=== PATIENT | female | born 1965 | race Two or more races ===

== ENCOUNTER 2024-07-05 16:23 | Inpatient (IN) | payer MEDICAID, OTHER ==
[~2024-07-05] VITALS: Ht 152.4 cm; Wt 92.5 kg
[2024-07-05 17:01] LABS: Basophils # (auto) 0.1 10 ^3/uL (0-0.2); Basophils % (auto) 0.9 % (0.0-2.0); Eosinophils # (auto) 0.1 10 ^3/uL (0-0.8); Eosinophils % (auto) 0.5 % (0.0-7.0); Hematocrit 44.5 % (36.0-46.0); Hemoglobin 14.7 g/dL (12.2-16.2); Lymphocytes % (auto) 22.6 % (10.0-50.0); Mean Corpuscular Hemoglobin 29.2 pg (28.0-32.0); Mean Corpuscular Hgb Conc. 33.1 g/dL (32.0-36.0); Mean Corpuscular Volume 88.2 fL (80.0-100.0); Monocytes % (auto) 7.3 % (0.0-12.0); Neutrophils # (auto) 9.2 10 ^3/uL (1.6-8.6); Neutrophils % (auto) 68.7 % (37.0-80.0); Platelet Count (auto) 344 10^3/uL (140-450); Red Blood Cells 5.04 10^6/uL (4.0-5.20); Red Cell Distribution Width 14.2 % (11.8-14.3); White Blood Cell 13.3 10^3/uL (4.4-10.8)
[2024-07-05 17:16] LABS: Chloride 108 mmol/L (98-107); Potassium 3.6 mmol/L (3.5-5.1); Sodium 139 mmol/L (136-145)
[2024-07-05 17:17] LABS: Anion Gap 11 (5-15); Calcium 10.4 mg/dL (8.7-10.4); Carbon Dioxide 20 mmol/L (20-31)
[2024-07-05 17:22] LABS: Blood Urea Nitrogen 11 mg/dL (9-23); Glucose 104 mg/dL (74-106)
[2024-07-05] MEDS: SODIUM CHLORIDE 0.9% 1,000 ML IV ONE (17:30)
[2024-07-05] MEDS: MORPHINE SULFATE 4 MG/ML SYR/VIAL IV ONE (17:30)
[2024-07-05 17:45] LABS: Urine Bacteria None Seen /hpf (None Seen)
[2024-07-05 18:23] LABS: Urine Blood 1+ /uL (Negative); Urine Clarity Clear (Clear); Urine Color Light-Yellow (Yellow); Urine Mucus FEW (None Seen); Urine Protein, UAD TRACE (Negative); Urine Specific Gravity 1.022 (1.001-1.035); Urine Urobilinogen Normal (Negative); Urine WBC <1 /hpf (0 - 5); Urine pH 5.5 (5.0-9.0)
[2024-07-05] MEDS: ONDANSETRON HCL 4 MG/2 ML VIAL IV ONE (18:24)
[2024-07-05] MEDS ORDERED: HYDROcodone-ACET 5/325MG TAB PO PRN (22:00)
[2024-07-05] MEDS ORDERED: NITROGLYCERIN 0.4 MG SL TAB SL PRN (22:00)
[2024-07-05] MEDS ORDERED: MORPHINE SULFATE INJ 2 MG/ml SYRG IV PRN (22:00)
[2024-07-05] MEDS ORDERED: ACETAMINOPHEN 325 MG TAB PO PRN (22:00)
[2024-07-05 23:06] LABS: Magnesium 1.9 mg/dL (1.6-2.6)
[2024-07-05 23:10] LABS: Amphetamine Screen, Urine Neg (NEGATIVE); Barbiturate Scree,Urine Neg (NEGATIVE); Benzodiazephine Screen, Urine Neg (NEGATIVE); Cannabinoid Screen, Urine Neg (NEGATIVE); Cocaine Screen, Urine Neg (NEGATIVE); Opiate Scree,Urine Neg (NEGATIVE); Phencyclidine Screen, Urine Neg (NEGATIVE)
[2024-07-06] MEDS ORDERED: KETOROLAC TROMETH 30 MG/ML 1ML VIAL IV PRN
[2024-07-06] MEDS ORDERED: DEXTROSE (50%) 50ML SYRG IV PRN (01:15)
[2024-07-06] MEDS ORDERED: LABETALOL HCL 20 MG/4 ML VL IV PRN (01:30)
[2024-07-06] MEDS: metroNIDAZOLE 500MG/100ML 100 ML IV SCH (03:12)
[2024-07-06] MEDS: SODIUM CHLOR 0.9% PF (SALINE LOCK) 10ML VIAL/SYR IV SCH (03:43)
[2024-07-06] MEDS: SODIUM CHLORIDE 0.9% 1,000 ML IV SCH (03:52)
[2024-07-06 04:22] LABS: Basophils # (auto) 0 10 ^3/uL (0-0.2); Basophils % (auto) 0.5 % (0.0-2.0); Eosinophils # (auto) 0.1 10 ^3/uL (0-0.8); Eosinophils % (auto) 1.1 % (0.0-7.0); Hematocrit 37.1 % (36.0-46.0); Hemoglobin 12.7 g/dL (12.2-16.2); Lymphocytes # (auto) 2.8 10 ^3/uL (0.4-5.4); Lymphocytes % (auto) 30.2 % (10.0-50.0); Mean Corpuscular Hgb Conc. 34.2 g/dL (32.0-36.0); Mean Corpuscular Volume 87.6 fL (80.0-100.0); Monocytes # (auto) 0.9 10 ^3/uL (0-1.3); Monocytes % (auto) 9.6 % (0.0-12.0); Neutrophils # (auto) 5.5 10 ^3/uL (1.6-8.6); Neutrophils % (auto) 58.6 % (37.0-80.0); Platelet Count (auto) 293 10^3/uL (140-450); Red Blood Cells 4.24 10^6/uL (4.0-5.20); Red Cell Distribution Width 14.2 % (11.8-14.3); White Blood Cell 9.4 10^3/uL (4.4-10.8)
[2024-07-06 04:35] LABS: Alanine Aminotransferase 18 U/L (7-40); Albumin 4.2 g/dL (3.2-4.8); Alkaline Phosphatase 79 U/L (46-116); Anion Gap 11 (5-15); Aspartate Aminotransferase 14 U/L (13-40); Bilirubin, Total 1.7 mg/dL (0.2-1.0); Blood Urea Nitrogen 10 mg/dL (9-23); Calcium 9.4 mg/dL (8.7-10.4); Carbon Dioxide 21 mmol/L (20-31); Chloride 108 mmol/L (98-107); Glucose 117 mg/dL (74-106); Potassium 3.6 mmol/L (3.5-5.1); Sodium 140 mmol/L (136-145); Total Protein 7.1 g/dL (5.7-8.2)
[2024-07-06] MEDS: ACCU-CHEK COMFORT CURVE STRIP VI SCH (06:13)
[2024-07-06] MEDS: InsuLIN REG 1unit/0.01ml Soln (100units/ml) SC SCH (06:13)
[2024-07-06] MEDS ORDERED: POTASSIUM CHL 20MEQ/100ML 100 ML IV ONE (07:45)
[2024-07-06 07:56] VITALS: PULSE 79; RESP 15; O2SAT 93
[2024-07-06] MEDS: LOSARTAN POTASSIUM 25 MG TAB PO SCH (08:36)
[2024-07-06] MEDS: PANTOPRAZOLE 40 MG/10 ML VIAL INJ IV SCH (08:40)
[2024-07-06] MEDS: ENOXAPARIN SOD 40 MG/0.4 ML SYRINGE SC SCH (08:41)
[2024-07-06] MEDS ORDERED: levoFLOXacin 500MG 100 ML IV SCH (10:00)
[2024-07-06] MEDS: levoFLOXacin 500MG 100 ML IV SCH (10:05)
[2024-07-06] MEDS: POTASSIUM CHL 20 Meq TABLET PO ONE (10:06)
[2024-07-06] MEDS: ONDANSETRON HCL 4 MG/2 ML VIAL IV PRN (10:27)
[2024-07-06] MEDS: ALLOPURINOL 100 MG TAB PO ONE (11:06)
[2024-07-06] MEDS: LORazepam 2MG/ML-1ML VIAL IV PRN (14:04)
[2024-07-06] MEDS: KETOROLAC TROMETH 30 MG/ML 1ML VIAL IV PRN (14:19)
[2024-07-06] MEDS: ERGOCALCIFEROL 50,000 UNIT(1.25MG) CAP PO SCH (15:43)
[2024-07-06 17:00] VITALS: BP 138/46; PULSE 84; RESP 18; TEMP 97.6; O2SAT 96
[2024-07-06 17:05] VITALS: BP 138/46; PULSE 80; RESP 20; TEMP 97.9; O2SAT 95
[2024-07-06] MEDS ORDERED: METF-869 PO (19:16)
[2024-07-06] MEDS ORDERED: ALLO300T2 PO (19:16)
[2024-07-06] MEDS ORDERED: PANT40T PO (19:16)
[2024-07-06] MEDS ORDERED: ATOR10TA52 PO (19:16)
[2024-07-06] MEDS ORDERED: METO25TA93 PO (19:16)
[2024-07-06 20:00] VITALS: PULSE 75; RESP 16
[2024-07-06 21:00] VITALS: BP 156/67; PULSE 75; RESP 16; TEMP 97.7; O2SAT 95
[2024-07-06] MEDS: DOCUSATE SOD 100 MG CAP PO PRN (21:37)
[2024-07-06] MEDS: ATORVASTATIN 20 MG TAB PO SCH (21:37)
[2024-07-07 05:00] VITALS: BP 137/58; PULSE 74; RESP 16; TEMP 97.5; O2SAT 96
[2024-07-07 05:30] LABS: Alanine Aminotransferase 18 U/L (7-40); Albumin 3.8 g/dL (3.2-4.8); Alkaline Phosphatase 74 U/L (46-116); Anion Gap 9 (5-15); Aspartate Aminotransferase 17 U/L (13-40); BUN/Creatinine Ratio 7.7 (10.0-20.0); Blood Urea Nitrogen 8 mg/dL (9-23); Calcium 9.4 mg/dL (8.7-10.4); Carbon Dioxide 19 mmol/L (20-31); Chloride 114 mmol/L (98-107); Glucose 98 mg/dL (74-106); Potassium 4.2 mmol/L (3.5-5.1); Sodium 142 mmol/L (136-145)
[2024-07-07 05:31] LABS: Bilirubin, Total 1.3 mg/dL (0.2-1.0); Total Protein 6.7 g/dL (5.7-8.2)
[2024-07-07 09:00] VITALS: BP 151/66; PULSE 83; RESP 16; TEMP 98.2; O2SAT 94
[2024-07-07] MEDS: ALLOPURINOL 100 MG TAB PO SCH (10:02)
[2024-07-07] MEDS ORDERED: METR-344 PO (10:21)
[2024-07-07] MEDS ORDERED: LOS25T PO (10:21)
[2024-07-07] MEDS ORDERED: LEVO750T40 PO (10:21)
[2024-07-07] MEDS: ONDANSETRON ODT 4 MG TAB PO ONE (10:27)
[2024-07-11] MEDS ORDERED: HYDROcodone-ACET 5/325MG TAB PO PRN (10:55)
== END 2024-07-07 11:51 | disposition home or self-care (01) | DRG 244 ==
LOC: ER 16:23 → OVERFLOW 21:47 → WEST WING 07-06 17:20
PROVIDERS: ADMIT Internal Medicine; ATTEND Internal Medicine
DX: K57.32 Diverticulitis of large intestine without perforation or abscess without bleeding (principal); N17.0 Acute kidney failure with tubular necrosis; R65.10 Systemic inflammatory response syndrome (SIRS) of non-infectious origin without acute organ dysfunction; E11.9 Type 2 diabetes mellitus without complications; I10 Essential (primary) hypertension; K21.9 Gastro-esophageal reflux disease without esophagitis; G43.909 Migraine, unspecified, not intractable, without status migrainosus; M10.9 Gout, unspecified; Z90.710 Acquired absence of both cervix and uterus; Z79.4 Long term (current) use of insulin; Z79.899 Other long term (current) drug therapy
CPT/HCPCS: 36415; 74176; 76775; 80048; 80053; 80307; 81001; 82306; 82607; 82962; 83036; 83690; 83735; 84443; 85025; 86141; 93970; 99291; G0378; J1885; J1956; J2405; J2470; J3490; Q0162

== ENCOUNTER 2024-09-01 13:08 | Inpatient (IN) | payer MEDICAID, SELFPAY ==
[~2024-09-01] VITALS: Ht 149.9 cm; Wt 88.5 kg
[~2024-09-01 13:08] MED LIST: ALLO300T2 PO; ATOR10TA52 PO; CIPR-214 PO; HYDR50TA69 PO; LEVO750T40 PO; LOS25T PO; LOSA-534 PO; MET500T PO; METF-370 PO; METF-869 PO; METO25TA93 PO; METR-344 PO; PANT40T PO
--- NOTE | 2024-09-01 13:29 | ED.PDOC ---
GI ASSESSMENT HPI Comments 59Y F with PMHx DM, HTN, and diverticulitis presents to ED for chief complaint lt-sided abd pain. Additional symptoms include nausea, vomiting, and diarrhea. Pt is unable to tolerate food. Pt states she had the flu recently. Pt was also diagnosed with diverticulitis and was prescribed abx for one week. Pt is currently on day 5 of the abx. Chief Complaint: Abdominal Pain Time Seen by MD: 13:20 Primary Care Provider: NONE Reviewed Notes: Medications, Allergies Allergies: Coded Allergies: Morphine (Verified Allergy, Unknown, 07/05/24) Penicillins (Verified Allergy, Unknown, 07/05/24) Uncoded Allergies: IV BENADRYL (Allergy, Unknown, 07/05/24) Home Meds Active Scripts Metronidazole (Flagyl) 500 Mg Tab, 1 TAB PO TID, #30 TAB Prov:XAVIER JAMES RESIDENT 07/07/24 Levofloxacin Hemihydrate (LEVOFLOXACIN) 750 Mg Tab, 1 TAB PO DAILY, #10 TAB Prov:XAVIER JAMES RESIDENT 07/07/24 Losartan Potassium (Losartan Potassium) 25 Mg Tab, 25 MG PO DAILY for 30 Days, #30 TAB Prov:XAVIER JAMES RESIDENT 07/07/24 Reported Medications Allopurinol (Allopurinol) 300 Mg Tab, 1 TAB PO DAILY 07/06/24 Pantoprazole Sodium Sesquihydr (Pantoprazole Sodium) 40 Mg Tab, 1 TAB PO QAM 07/06/24 Atorvastatin Calcium (ATORVASTATIN CALCIUM) 10 Mg Tab, 1 TAB PO 07/06/24 Metoprolol Succinate (Metoprolol Succinate Er) 25 Mg Tab, 1 TAB PO DAILY 07/06/24 Metformin Hydrochloride (Metformin Hydrochloride) 500 Mg Tab, 1 TAB PO BID 07/06/24 Information Source: Patient Mode of Arrival: Ambulatory Timing: Days Duration: Since onset Quality: Sharp Vomitus: Watery Stool: Watery Severity: Moderate Recent: Antibiotics Recent Hx of: None Pain Location: LUQ, LLQ Modifying Factors: Nothing Associated sign and symptoms: Nausea, Vomiting, Diarrhea, Abdominal Pain Past Medical History PAST MEDICAL HISTORY: CKF, DM, HTN Past Medical History (Other): Diverticulitis Surgical History: Appendectomy, Hysterectomy, Tubal Ligation 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: No Pertinent 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 Family History Family History: Unknown Social History Smoker: Non-Smoker Alcohol: Denies ETOH Use Drugs: Denies Drug Use Lives In: Home Constitutional: denies: chills, diaphoresis, fatigue, fever, malaise, sweats, weakness, others EENTM: denies: blurred vision, double vision, ear bleeding, ear discharge, ear drainage, ear pain, ear ringing, eye pain, eye redness, hearing loss, mouth pain, mouth swelling, nasal discharge, nose bleeding, nose congestion, nose pain, photophobia, tearing, throat pain, throat swelling, voice changes, others Respiratory: denies: cough, hemoptysis, orthopnea, SOB at rest, shortness of breath, SOB with excertion, stridor, wheezing, others Cardiovascular: denies: chest pain, dizzy spells, diaphoresis, Dyspnea on exertion, edema, irregular heart beat, left arm pain, lightheadedness, palpitations, PND, syncope, others Gastrointestinal: reports: abdominal pain, diarrhea, nausea, vomiting; denies: abdomen distended, blood streaked bowels, constipated, dysphagia, difficulty swallowing, hematemesis, melena, poor appetite, poor fluid intake, rectal bleeding, rectal pain, others Genitourinary: denies: abnormal vagina bleeding, burning, dyspareunia, dysuria, flank pain, frequency, hematuria, incontinence, pain, , vagina discharge, urgency, others Neurological: denies: dizziness, fainting, headache, left sided numbness, left sided weakness, numbness, paresthesia, pre-existing deficit, right sided numbness, right sided weakness, seizure, speech problems, tingling, tremors, weakness, others Musculoskeletal: denies: back pain, gout, joint pain, joint swelling, muscle pain, muscle stiffness, neck pain, others Integumetry: denies: bruises, change in color, change in hair/nails, dryness, laceration, lesions, lumps, rash, wounds, others Allergic/Immunocompromised: denies: Difficulty Healing, Frequent Infections, Hives, Itching, others Hematologic/Lymphatic: denies: anemia, blood clots, easy bleeding, easy bruising, swollen glands, others Endocrine: denies: excessive hunger, excessive sweating, excessive thirst, excessive urination, flushing, intolerance to cold, intolerance to heat, unexplained weight gain, unexplained weight loss, others Psychiatric: denies: anxiety, bipolar disorder, depression, hopeless, panic disorder, schizophrenia, sleepless, suicidal, others All Other Systems: Reviewed and Negative Physical Exam General Appearance: Moderate Distress, Normal HEENT: Normal ENT Inspection, Pharynx Normal, TMs Normal Neck: Full Range of Motion, Non-Tender, Normal, Normal Inspection Respiratory: Chest Non-Tender, Lungs Clear, No Accessory Muscle Use, No Respiratory Distress, Normal Breath Sounds Cardiovascular: No Edema, No JVD, No Murmur, No Gallop, Normal Peripheral Pulses, Regular Rate/Rhythm Breast Exam: Deferred Gastrointestinal: No Organomegaly, Non Tender, No Pulsatile Mass, Normal Bowel Sounds, Soft Genitalia: Deferred Pelvic: Deferred Rectal: Deferred Extremities: No calf tenderness, Normal capillary refill, Normal inspection, Normal range of motion, Non-tender, No pedal edema Musculoskeletal : Apperance: Normal Neurologic: Alert, disability attorney II-XII nml as Tested, No Motor Deficits, Normal Affect, Normal Mood, No Sensory Deficits Cerebellar Function: Normal Reflexes: Normal Skin: Dry, Normal Color, Warm Peripheral Pulses: 3+ Radial (R), 3+ Radial (L) Lymphatic: No Adenopathy Was a procedure done? Was a procedure done?: No GI differential Dx Differential Diagnosis: Constipation, Diverticular disease, Esophagitis, Gastritis/PUD, Gastroenteritis, Electrolyte Imbalance, Bacterial, Viral X-Ray, Labs, Meds, VS Vital Signs Date Time Temp Pulse Resp B/P (MAP) Pulse Ox O2 Delivery O2 Flow Rate FiO2 09/01/24 14:39 98.2 72 18 151/67 (95) 98 98.2 09/01/24 14:15 Room Air* 0 21 09/01/24 13:18 97.7 94 20 131/79 (96) 98 Lab Test 09/01/24 14:00 09/01/24 13:43 Range/Units Urine Color Yellow Yellow Urine Clarity Clear Clear Urine pH 6.0 5.0-9.0 Urine Specific [place] 1.017 1.001-1.035 Urine Protein Trace H Negative Urine Ketones Trace Negative Urine Blood Negative Negative /uL Urine Nitrite Negative Negative Urine Bilirubin Negative Negative Urine Urobilinogen Normal Negative mg/dL Urine Leukocyte Esterase 1+ Negative /uL Urine RBC 2 0 - 4 /hpf Urine WBC 2 0 - 5 /hpf Urine Squamous Epithelial Cells Few <5 /hpf Urine Bacteria None seen None Seen /hpf Urine Mucus Few None Seen Urine Glucose Normal Normal mg/dL White Blood Count 8.5 4.4-10.8 10^3/uL Red Blood Count 4.68 4.0-5.20 10^6/uL Hemoglobin 13.7 12.2-16.2 g/dL Hematocrit 41.6 36.0-46.0 % Mean Corpuscular Volume 88.8 80.0-100.0 fL Mean Corpuscular Hemoglobin 29.3 28.0-32.0 pg Mean Corpuscular Hemoglobin Concent 33.0 32.0-36.0 g/dL Red Cell Distribution Width 14.8 H 11.8-14.3 % Platelet Count 365 140-450 10^3/uL Mean Platelet Volume 7.7 6.9-10.8 fL Neutrophils (%) (Auto) 47.7 37.0-80.0 % Lymphocytes (%) (Auto) 40.2 10.0-50.0 % Monocytes (%) (Auto) 10.0 0.0-12.0 % Eosinophils (%) (Auto) 0.6 0.0-7.0 % Basophils (%) (Auto) 1.5 0.0-2.0 % Neutrophils # (Auto) 4.1 1.6-8.6 10 ^3/uL Lymphocytes # (Auto) 3.4 0.4-5.4 10 ^3/uL Monocytes # (Auto) 0.9 0-1.3 10 ^3/uL Eosinophils # (Auto) 0.1 0-0.8 10 ^3/uL Basophils # (Auto) 0.1 0-0.2 10 ^3/uL Nucleated Red Blood Cells 0.1 % Sodium Level 141 136-145 mmol/L Potassium Level 3.6 3.5-5.1 mmol/L Chloride Level 108 H 98-107 mmol/L Carbon Dioxide Level 22 20-31 mmol/L Anion Gap 11 5-15 Blood Urea Nitrogen 9 9-23 mg/dL Creatinine 1.44 H 0.550-1.02 mg/dL Glomerular Filtration Rate Calc 42 >90 mL/min BUN/Creatinine Ratio 6.3 L 10.0-20.0 Serum Glucose 106 74-106 mg/dL Calcium Level 8.9 8.7-10.4 mg/dL Lipase 47 12-53 U/L Current Medications Medications (Trade) Dose Ordered Sig/Brandon Route Start Time Stop Time Status Last Admin Sodium Chloride 1,000 ml @ 1,000 mls/hr Q1H ONCE IV 09/01/24 13:45 09/01/24 14:44 DC 09/01/24 13:[address] [address] Ph: [phone] DIAGNOSTIC IMAGING Diagnostic Imaging Report : [id number] Signed PATIENT: CESAR RIOS ACCT: [id number] UNIT: [id number] : 1965 LOC: ER ROOM / BED: / AGE / SEX: 59 / F ADM STATUS: REG ER SERVICE 1510 ORDERING PHYSICIAN: PIPER AGUILAR MD PROCEDURE(s): ABPL - CT AB PEL WO CON-NO ORAL OR IV REASON: diverticulitis ORDER NUMBER(s): [id number], ACCESSION NUMBER(s): [id number] Exam: CT CT AB PEL WO CON-NO ORAL OR IV History: diverticulitis Comparison Study: 07/05/2024 TECHNIQUE: Multidetector CT of the abdomen and pelvis without contrast. Axial, coronal and sagittal multiplanar reformats were obtained from the axial data set by the technologist. Radiation Dose Information: CT Dose: CTDI volume is 16.07 mGy. Dose-length product is 878.85 mGy*cm FINDINGS: Bibasilar atelectasis. Partially visualized heart is unremarkable. Mild hepatomegaly. Otherwise, liver, spleen, gallbladder, pancreas and adrenal glands are unremarkable. Moderate to severe atrophy of the right kidney. Punctate nonobstructing right renal calculi. Otherwise, kidneys, ureters and urinary bladder are unremarkable. Status post hysterectomy. Mild gastric wall thickening. Otherwise, stomach is unremarkable. Small bowel loops unremarkable. Appendix is not definitely visualized. Scattered colonic diverticulosis with minimal fat stranding adjacent to a segment of the sigmoid. Small amount of fecal material within the colon. No intraperitoneal free air or free fluid. No evidence of aortic aneurysm. Mild atherosclerotic calcification of the aorta. No significant lymphadenopathy. Tiny fat containing umbilical hernia. The soft tissues are unremarkable. No destructive osseous lesions are noted. IMPRESSION: Colonic diverticulosis with mild sigmoid diverticulitis. Mild gastric wall thickening which may be due to inadequate distention/gastritis. Additional findings as above. ATED BY: DARLENE HIGH DO DICTATED DATE/TIME: 09/01/241531 SIGNED BY: DARLENE HIGH DO SIGNED DATE/TIME: 09/01/241531 CC: Patient alert. Complaining of abdominal pain. Has been taking antibiotics for possible diverticulitis for the past few days. Vitals stable. Abdomen is soft. Continues to have abdominal pain. Establish intravenous access. Was given fluids. Reviewed her previous visit. Explained to the patient. Continue cardiac monitoring. CT scan of the abdomen reviewed does show diverticulitis. Was given Rocephin. Was given Flagyl. Time of 1ST Reevaluation: 13:50 Reevaluation 1ST: Unchanged Patient Education/Counseling: Diagnosis, Treatment Family Education/Counseling: No Family Present Additional Information I reviewed the following notes from patient's past medical encounters: [facility] discharge 07/07/2024 The following tests were ordered, and results were reviewed by me: CBC, BMP, Lipase, UA, CT abd/pelvis WO contrast I reviewed and agreed with the following test results read by other providers: CT abd/pelvis WO contrast I discussed treatment and results with medical personnel and hospitalist. Departure 1 Departure Time of Disposition: 13:44 Impression: Primary Impression: Acute abdominal pain Additional Impression: Acute diverticulitis Disposition: ADMITTED INPATIENT Admit to: Med Surg Condition: Guarded Critical Care Note Critical Care Time?: No Stability Stability form required: No Heart Score Heart Score: Heart Score Response (Comments) Value History N/A 0 EKG N/A 0 Age N/A 0 Risk Factors N/A 0 Troponin N/A 0 Total 0 I personally scribed for PIPER AGUILAR MD ([email or web address]) on 09/01/24 at 13:29. Electronically submitted by Iza Mackenzie ([facility]). I personally scribed for PIPER AGUILAR MD ([email or web address]) on 09/01/24 at 15:20. Electronically submitted by Iza Mackenzie ([facility]). I personally scribed for PIPER AGUILAR MD ([email or web address]) on 09/01/24 at 16:07. Electronically submitted by Iza Mackenzie ([email or web address]). PIPER AGUILAR MD Sep 01, 2024 13:29
[2024-09-01] MEDS: HYDROcodone-ACET 10/325MG TAB PO ONE (13:45)
[2024-09-01] MEDS: SODIUM CHLORIDE 0.9% 1,000 ML IV ONE ×2 (13:45→18:04)
[2024-09-01 13:59] LABS: Basophils # (auto) 0.1 10 ^3/uL (0-0.2); Basophils % (auto) 1.5 % (0.0-2.0); Eosinophils # (auto) 0.1 10 ^3/uL (0-0.8); Eosinophils % (auto) 0.6 % (0.0-7.0); Hematocrit 41.6 % (36.0-46.0); Hemoglobin 13.7 g/dL (12.2-16.2); Lymphocytes # (auto) 3.4 10 ^3/uL (0.4-5.4); Lymphocytes % (auto) 40.2 % (10.0-50.0); Mean Corpuscular Hemoglobin 29.3 pg (28.0-32.0); Mean Corpuscular Volume 88.8 fL (80.0-100.0); Monocytes # (auto) 0.9 10 ^3/uL (0-1.3); Neutrophils # (auto) 4.1 10 ^3/uL (1.6-8.6); Neutrophils % (auto) 47.7 % (37.0-80.0); Nucleated Red Blood Cells % 0.1 %; Platelet Count (auto) 365 10^3/uL (140-450); Red Blood Cells 4.68 10^6/uL (4.0-5.20); Red Cell Distribution Width 14.8 % (11.8-14.3); White Blood Cell 8.5 10^3/uL (4.4-10.8)
[2024-09-01 14:01] LABS: Potassium 3.6 mmol/L (3.5-5.1); Sodium 141 mmol/L (136-145)
[2024-09-01 14:02] LABS: Anion Gap 11 (5-15); Carbon Dioxide 22 mmol/L (20-31)
[2024-09-01 14:03] LABS: Calcium 8.9 mg/dL (8.7-10.4)
[2024-09-01 14:07] LABS: Glucose 106 mg/dL (74-106)
[2024-09-01 14:08] LABS: BUN/Creatinine Ratio 6.3 (10.0-20.0); Blood Urea Nitrogen 9 mg/dL (9-23); Lipase 47 U/L (12-53)
[2024-09-01 14:10] LABS: Chloride 108 mmol/L (98-107)
[2024-09-01 14:26] LABS: Urine Bacteria None Seen /hpf (None Seen)
[2024-09-01 14:37] LABS: Urine Blood Negative /uL (Negative); Urine Clarity Clear (Clear); Urine Color Yellow (Yellow); Urine Mucus FEW (None Seen); Urine Protein, UAD TRACE (Negative); Urine Specific Gravity 1.017 (1.001-1.035); Urine Urobilinogen Normal (Negative); Urine WBC 2 /hpf (0 - 5)
--- NOTE | 2024-09-01 15:35 | DVH ---
Exam: CT CT AB PEL WO CON-NO ORAL OR IV History: diverticulitis Comparison Study: 07/05/2024 TECHNIQUE: Multidetector CT of the abdomen and pelvis without contrast. Axial, coronal and sagittal m ultiplanar reformats were obtained from the axial data set by the technologist. Radiation Dose Information: CT Dose: CTDI volume is 16.07 mGy. Dose-length product is 878.85 mGy*cm FINDINGS: Bibasilar atelectasis. Partially visualized heart is unremarkable. Mild hepatomegaly. Otherwise, liver, spleen, gallbladder, pancreas and adrenal glands are unremarkabl e. Moderate to severe atrophy of the right kidney. Punctate nonobstructing right renal calculi. Otherwis e, kidneys, ureters and urinary bladder are unremarkable. Status post hysterectomy. Mild gastric wall thickening. Otherwise, stomach is unremarkable. Small bowel loops unremarkable. Ap pendix is not definitely visualized. Scattered colonic diverticulosis with minimal fat stranding norbert cent to a segment of the sigmoid. Small amount of fecal material within the colon. No intraperitoneal free air or free fluid. No evidence of aortic aneurysm. Mild atherosclerotic calcification of the aorta. No significant lymphadenopathy. Tiny fat containing umbilical hernia. The soft tissues are unremarkable. No destructive osseous lesi ons are noted. IMPRESSION: Colonic diverticulosis with mild sigmoid diverticulitis. Mild gastric wall thickening which may be due to inadequate distention/gastritis. Additional findings as above.
[2024-09-01] MEDS: MORPHINE SULFATE 4 MG/ML SYR/VIAL IV ONE (16:30)
--- NOTE | 2024-09-01 17:10 | DVHHPRES ---
History of Present Illness Resident Creating Document: ALAINA MADRIGAL RESIDENT History of Present Illness This is a 59-year-old female patient with PMHx of recurrent episodes of diverticulitis, left-sided kidney cyst, type 2 diabetes mellitus diagnosed in 2013, ocular migraine, panic disorder, GERD, hypertension, dyslipidemia who presented to the ER with the chief complaint of abdominal pain, nausea, vomiting and generalized weakness starting 08/27. She was recently hospitalized in this facility in June for diverticulitis. She did not underwent colonoscopy after discharge. Patient reports multiple hospitalizations in this year at [facility] for diverticulitis in November/December/May. Patient reports being positive for influenza A on 08/26. She visited urgent care on 08/27 for abdominal pain and was started on tablet ciprofloxacin and metronidazole which she took for the next 3 days but did not improve her condition and therefore she decided to check in the ER. She reports sharp pain in the left lower quadrant of the abdomen. The pain worsens on walking. Associated symptoms include generalized weakness, nausea, vomiting which is mucoid and yellowish, denies blood in the vomit. She reports that she has a last bowel movement yesterday night but it was like green peas and pellet like in shape. Her last EGD and colonoscopy was completed in August 01 which showed diverticulosis. PCP [facility] medication: Metformin 500 mg twice daily, atorvastatin 10 mg HS daily, losartan 50 mg HS daily, metoprolol XL 25 mg HS daily, hydroxyzine 50 mg p.r.n., lorazepam 0.5 mg p.r.n., pantoprazole 40 mg daily, allopurinol 300 mg daily, prednisolone 20 mg p.r.n., rizatriptan 5 mg p.r.n., ondansetron 4 mg p.r.n., fluticasone nasal spray 50 mcg p.r.n., diclofenac 1% gel p.r.n., colchicine 0.6 mg p.r.n. Patient seen and examined in ER . Reports no acute distress. Feels better than as compared to on arrival. Diffuse abdominal tenderness noted in the physical exam. Past Medical History PMHx of recurrent episodes of diverticulitis, left-sided kidney cyst, type 2 diabetes mellitus diagnosed in 2013, ocular migraine, panic disorder, GERD, hypertension, dyslipidemia Past Surgical History Full hysterectomy 2017, tubal ligation, appendectomy 2006 Family History: CVA (In mother), Hypertension, Other (Melanoma in father) Smoke: No ALCOHOL: none Drugs: None Lives: with Family Domestic Violence: Neg Past Social History Lives with Review of Systems Constitutional: Yes: Weakness, Malaise Respiratory: Shortness of breath Cardiovascular: Palpitations (Occasional) Gastrointestinal: Nausea, Vomiting, Abdominal Pain Allergies: Coded Allergies: Morphine (Verified Allergy, Unknown, 07/05/24) Penicillins (Verified Allergy, Unknown, 07/05/24) Uncoded Allergies: IV BENADRYL (Allergy, Unknown, 07/05/24) Medications Current Medications Medications Dose Ordered Sig/Brandon Route Start Time Stop Time Status Last Admin Dose Admin Acetaminophen 650 mg Q6HP PRN PO 09/01/24 17:15 UNV Ondansetron HCl 4 mg Q4HP PRN IV 09/01/24 17:15 UNV Enoxaparin Sodium 40 mg DAILY SC 09/02/24 10:00 UNV Exam Vital Signs Vital Signs Date Time Temp Pulse Resp B/P (MAP) Pulse Ox O2 Delivery O2 Flow Rate FiO2 09/01/24 14:39 98.2 72 18 151/67 (95) 98 98.2 09/01/24 14:15 Room Air* 0 21 Exam Obese female patient sitting in a chair in ER comfortably. In no acute distress. General: Obese, afebrile, palor, mucosae are moist Cardiovascular: Regular S1 and S2. No murmurs, gallops or rubs. No JVD elevation. No pedal edema Respiratory: Normal B/L air entry on room air. Clear lung sounds on auscultation Abdomen: Soft, epigastric and left lower quadrant tenderness, nondistended, h ypoactive bowel sounds, no rebound tenderness, no organomegaly, no masses Genitourinary: Deferred MSK/skin: Mobilizes 4 limbs. Skin is dry and warm Neurological: No motor, no sensitive deficits, normal speech. Pupils are isocoric and reactive. Psych/Mental Status: A/Ox4 Labs/Xrays Labs Test 09/01/24 14:00 09/01/24 13:43 Range/Units Urine Color Yellow Yellow Urine Clarity Clear Clear Urine pH 6.0 5.0-9.0 Urine Specific [place] 1.017 1.001-1.035 Urine Protein Trace H Negative Urine Ketones Trace Negative Urine Blood Negative Negative /uL Urine Nitrite Negative Negative Urine Bilirubin Negative Negative Urine Urobilinogen Normal Negative mg/dL Urine Leukocyte Esterase 1+ Negative /uL Urine RBC 2 0 - 4 /hpf Urine WBC 2 0 - 5 /hpf Urine Squamous Epithelial Cells Few <5 /hpf Urine Bacteria None seen None Seen /hpf Urine Mucus Few None Seen Urine Glucose Normal Normal mg/dL White Blood Count 8.5 4.4-10.8 10^3/uL Red Blood Count 4.68 4.0-5.20 10^6/uL Hemoglobin 13.7 12.2-16.2 g/dL Hematocrit 41.6 36.0-46.0 % Mean Corpuscular Volume 88.8 80.0-100.0 fL Mean Corpuscular Hemoglobin 29.3 28.0-32.0 pg Mean Corpuscular Hemoglobin Concent 33.0 32.0-36.0 g/dL Red Cell Distribution Width 14.8 H 11.8-14.3 % Platelet Count 365 140-450 10^3/uL Mean Platelet Volume 7.7 6.9-10.8 fL Neutrophils (%) (Auto) 47.7 37.0-80.0 % Lymphocytes (%) (Auto) 40.2 10.0-50.0 % Monocytes (%) (Auto) 10.0 0.0-12.0 % Eosinophils (%) (Auto) 0.6 0.0-7.0 % Basophils (%) (Auto) 1.5 0.0-2.0 % Neutrophils # (Auto) 4.1 1.6-8.6 10 ^3/uL Lymphocytes # (Auto) 3.4 0.4-5.4 10 ^3/uL Monocytes # (Auto) 0.9 0-1.3 10 ^3/uL Eosinophils # (Auto) 0.1 0-0.8 10 ^3/uL Basophils # (Auto) 0.1 0-0.2 10 ^3/uL Nucleated Red Blood Cells 0.1 % Sodium Level 141 136-145 mmol/L Potassium Level 3.6 3.5-5.1 mmol/L Chloride Level 108 H 98-107 mmol/L Carbon Dioxide Level 22 20-31 mmol/L Anion Gap 11 5-15 Blood Urea Nitrogen 9 9-23 mg/dL Creatinine 1.44 H 0.550-1.02 mg/dL Glomerular Filtration Rate Calc 42 >90 mL/min BUN/Creatinine Ratio 6.3 L 10.0-20.0 Serum Glucose 106 74-106 mg/dL Calcium Level 8.9 8.7-10.4 mg/dL Lipase 47 12-53 U/L Assessment/Plan Assessment/Plan Diffuse abdominal pain secondary to Acute sigmoid diverticulitis-5th episode in this year Intractable nausea and vomiting Bibasilar atelectasis Started IV levofloxacin and IV metronidazole Q 8 hour starting 09/01 NPO for now Last colonoscopy and endoscopy 07/2023 at [facility] showed diverticulosis ESR, CRP pending CT scan completed 09/01 shows colonic diverticulosis with mild sigmoid diverticulitis. Also showed mild gastric wall thickening which may be due to inadequate distention versus gastritis Outpatient colonoscopy advised Follow up with liver ultrasound Gastritis Pantoprazole 40 mg IV b.i.d. Outpatient EGD Type 2 diabetes mellitus- A1c 6.1 as of 07/05 - controlled Initiated mild ISS Goal blood glucose 140 to 180 mg/dL Nonobstructing right renal calculi Atrophic right kidney Consider starting tamsulosin Continue IV fluids Influenza a positive Chest x-ray pending Patient tested a positive for influenza A on 08/26 Influenza and COVID testing pending Umbilical hernia Seen on CT scan Outpatient workup advised ZENY questionable vasomotor nephropathy-resolved Creatinine 1.44, baseline 1.0 Continue IV fluids Hypertension Continue home medication metoprolol XL 25 mg daily Holding losartan given the ZENY Hydralazine 10 mg IV q.6 p.r.n. for SBP greater than 160 mmHg GERD Pantoprazole 40 mg b.i.d. History of migraine headache Continue rizatriptan 50 mg p.o. p.r.n. History of gout Continue home medication allopurinol 300 mg daily History of anxiety and panic disorder Continue home medication Ativan 0.5 mg p.r.n. Diet: NPO DVT prophylaxis Lovenox 40 mg sc daily Plan discussed with patient in which all questions have been answered Goals of care discussed with patient for more than 30 minutes, full code status Case discussed with Dr. Parisi. Plan discussed with: Patient My Orders Orders - ALAINA MADRIGAL Procedure Category Date Status Time Admit ADMIT 09/01/24 Transmitted 17:02 Code Status CODE 09/01/24 Transmitted 17:02 Vital Signs ZULEMA 12/24/24 In Process 17:02 Npo (Nothing By DIET 09/01/24 Transmitted Mouth) Diet Dinner Acetaminophen Tablet PHA 09/01/24 Logged (Tylenol Tablet) 17:15 Notify Md Of Changes ZULEMA 09/01/24 In Process From Base 17:02 Advance Directive ZULEMA 09/01/24 In Process 17:02 Ondansetron Hcl PHA 09/01/24 Logged (Zofran) 17:15 Enoxaparin Sodium PHA 09/02/24 Logged (Lovenox) 10:00 Complete Blood Count LAB 09/02/24 Verified 04:00 Comprehensive LAB 09/02/24 Verified Metabolic Panel 04:00 Date of Service: Sep 01, 2024 Billing Provider: GISELLE PARISI MD Common Visit Codes: 05341-GSHAMQA INP/OBS CARE (HIGH) Secondary Visit Codes: 56273-SGNLFLBE CARE PLAN 30 MINUTES ALAINA MADRIGAL RESIDENT Sep 01, 2024 17:10 GISELLE PARISI MD Sep 01, 2024 20:22
[2024-09-01] MEDS ORDERED: ACETAMINOPHEN 325 MG TAB PO PRN (17:15)
[2024-09-01] MEDS: ONDANSETRON HCL 4 MG/2 ML VIAL IV ONE (17:42)
[2024-09-01] MEDS: cefTRIAXone 1GM/50ML D5W 50 ML IV ONE (17:43)
[2024-09-01] MEDS ORDERED: hydrALAZINE HCL 20 MG/ML VL IV PRN (17:45)
[2024-09-01] MEDS ORDERED: DEXTROSE (50%) 50ML SYRG IV PRN (17:45)
[2024-09-01] MEDS: InsuLIN REG 1unit/0.01ml Soln (100units/ml) SC SCH (18:00)
[2024-09-01] MEDS: metroNIDAZOLE 500MG/100ML 100 ML IV ONE (18:00)
[2024-09-01 18:16] LABS: Albumin 4.7 g/dL (3.2-4.8); Bilirubin, Total 1.2 mg/dL (0.2-1.0); Magnesium 1.8 mg/dL (1.6-2.6); Total Protein 8.1 g/dL (5.7-8.2)
[2024-09-01 18:21] LABS: Bilirubin, Direct 0.4 mg/dL (<0.3)
[2024-09-01] MEDS: ACCU-CHEK COMFORT CURVE STRIP VI SCH (18:23)
[2024-09-01 18:53] LABS: Erythrocyte Sedimentation Rate 38 mm/hr (0-20)
--- NOTE | 2024-09-01 20:09 | DVH ---
INDICATION: Renal stone and transaminitis TECHNIQUE: Multiple real-time sonographic images of the abdomen were obtained. COMPARISON: None FINDINGS: The liver is homogenous in echogenicity. The liver measures 17.5 cm. No intrahepatic bilia ry ductal dilatation is noted. The gallbladder wall measures 0.2 cm and is unremarkable. No gallstones or sludge is seen. The com mon duct measures 0.45 cm and is unremarkable. No pericholecystic fluid is noted. Negative ultrasoun d Fernandez's sign is elicited. The right kidney measures 6.8 cm. No hydronephrosis. The left kidney measures 9.8 cm. No hydronephr osis. The spleen measures 8.4 cm, within normal limits. The echogenicity is within normal limits. The pancreas is not well visualized due to obscuration from bowel gas. The visualized portions of the IVC and aorta are grossly unremarkable. Abdominal aorta measures 1.6 c m IMPRESSION: 1. Right kidney is atrophic and measures 6.8 cm. 2. Gallbladder is normal. 3. Liver measures 17.5 cm.
[2024-09-01] MEDS: levoFLOXacin 750MG 150 ML IV SCH (20:14)
[2024-09-01] MEDS: ONDANSETRON HCL 4 MG/2 ML VIAL IV PRN (21:43)
[2024-09-01] MEDS: LORazepam 2MG/ML-1ML VIAL IV PRN (21:43)
[2024-09-01] MEDS: PANTOPRAZOLE 40 MG/10 ML VIAL INJ IV SCH (22:40)
[2024-09-01] MEDS: metroNIDAZOLE 500MG/100ML 100 ML IV SCH (22:40)
[2024-09-01 23:25] VITALS: BP 126/78; PULSE 77; RESP 18; TEMP 98; O2SAT 97
[2024-09-01 23:30] VITALS: BP 138/65; PULSE 72; RESP 19; TEMP 97.6; O2SAT 96
[2024-09-02] VITALS (8 sets, daily range): BP systolic 124–154; BP diastolic 45–64; PULSE 59–85; RESP 16–19; TEMP 97.6–98; O2SAT 93–97
[2024-09-02 01:21] LABS: COVID19 ANTIGEN SOFIA FIA NEGATIVE (NEGATIVE)
[2024-09-02 05:10] LABS: Rapid Influenza A Negative (Negative); Rapid Influenza B Negative (Negative)
[2024-09-02 05:19] LABS: Basophils # (auto) 0 10 ^3/uL (0-0.2); Basophils % (auto) 0.3 % (0.0-2.0); Eosinophils # (auto) 0.1 10 ^3/uL (0-0.8); Eosinophils % (auto) 1.5 % (0.0-7.0); Lymphocytes # (auto) 2.1 10 ^3/uL (0.4-5.4); Lymphocytes % (auto) 38.8 % (10.0-50.0); Mean Corpuscular Hemoglobin 28.6 pg (28.0-32.0); Mean Corpuscular Hgb Conc. 32.5 g/dL (32.0-36.0); Mean Corpuscular Volume 88.2 fL (80.0-100.0); Monocytes # (auto) 0.6 10 ^3/uL (0-1.3); Monocytes % (auto) 10.3 % (0.0-12.0); Neutrophils # (auto) 2.7 10 ^3/uL (1.6-8.6); Neutrophils % (auto) 49.1 % (37.0-80.0); Nucleated Red Blood Cells % 0.1 %; Platelet Count (auto) 293 10^3/uL (140-450); Red Cell Distribution Width 14.5 % (11.8-14.3); White Blood Cell 5.5 10^3/uL (4.4-10.8)
[2024-09-02 05:34] LABS: INR 1.09 (0.9-1.15); Partial Thromboplastin Time 26.7 SEC (24.5-34.5); Prothrombin Time 11.5 sec (9.3-11.8)
[2024-09-02 05:39] LABS: Albumin 3.6 g/dL (3.2-4.8); Alkaline Phosphatase 67 U/L (46-116); Anion Gap 9 (5-15); BUN/Creatinine Ratio 7.1 (10.0-20.0); Bilirubin, Total 1.1 mg/dL (0.2-1.0); Calcium 9.1 mg/dL (8.7-10.4); Carbon Dioxide 21 mmol/L (20-31); Potassium 4.1 mmol/L (3.5-5.1); Sodium 142 mmol/L (136-145); Total Protein 6.1 g/dL (5.7-8.2)
[2024-09-02 07:00] LABS: Alanine Aminotransferase 54 U/L (7-40); Aspartate Aminotransferase 41 U/L (13-40); Blood Urea Nitrogen 9 mg/dL (9-23); Chloride 112 mmol/L (98-107); Glucose 115 mg/dL (74-106)
[2024-09-02] MEDS: ALLOPURINOL 100 MG TAB PO SCH (09:48)
[2024-09-02] MEDS: ENOXAPARIN SOD 40 MG/0.4 ML SYRINGE SC SCH (09:48)
[2024-09-02] MEDS: METOPROLOL SUCCINATE XL 50 MG TAB PO SCH (09:49)
--- NOTE | 2024-09-02 15:42 | DVHPNRES ---
Progress Note Date Seen: Sep 02, 2024 Resident Creating Document: ALAINA MADRIGAL RESIDENT Medical Necessity Reason Pt with a Central, PICC or Fol: No Subjective Review of Systems This is a 59-year-old female patient with PMHx of recurrent episodes of diverticulitis, left-sided kidney cyst, type 2 diabetes mellitus diagnosed in 2013, ocular migraine, panic disorder, GERD, hypertension, dyslipidemia who presented to the ER with the chief complaint of abdominal pain, nausea, vomiting and generalized weakness starting 08/27. She was recently hospitalized in this facility in June for diverticulitis. She did not underwent colonoscopy after discharge. Patient reports multiple hospitalizations in this year at [facility] for diverticulitis in November/December/May. Patient reports being positive for influenza A on 08/26. She visited urgent care on 08/27 for abdominal pain and was started on tablet ciprofloxacin and metronidazole which she took for the next 3 days but did not improve her condition and therefore she decided to check in the ER. She reports sharp pain in the left lower quadrant of the abdomen. The pain worsens on walking. Associated symptoms include generalized weakness, nausea, vomiting which is mucoid and yellowish, denies blood in the vomit. She reports that she has a last bowel movement yesterday night but it was like green peas and pellet like in shape. Her last EGD and colonoscopy was completed in August 01 which showed diverticulosis. PCP [facility] medication: Metformin 500 mg twice daily, atorvastatin 10 mg HS daily, losartan 50 mg HS daily, metoprolol XL 25 mg HS daily, hydroxyzine 50 mg p.r.n., lorazepam 0.5 mg p.r.n., pantoprazole 40 mg daily, allopurinol 300 mg daily, prednisolone 20 mg p.r.n., rizatriptan 5 mg p.r.n., ondansetron 4 mg p.r.n., fluticasone nasal spray 50 mcg p.r.n., diclofenac 1% gel p.r.n., colchicine 0.6 mg p.r.n. Past Medical history: PMHx of recurrent episodes of diverticulitis, left-sided kidney cyst, type 2 diabetes mellitus diagnosed in 2013, ocular migraine, panic disorder, GERD, hypertension, dyslipidemia Past surgical history: Full hysterectomy 2017, tubal ligation, appendectomy 2005 Family history: CVA (In mother), Hypertension, Other (Melanoma in father) Social history: Lives with , denies smoking/drinking/illicit drug use Patient seen and examined at bedside. Started clear liquid diet. Patient reports decreased appetite and nausea. QTC 430 Objective vital signs Vital Sign Date Time Temp Pulse Resp B/P (MAP) Pulse Ox O2 Delivery O2 Flow Rate FiO2 09/02/24 12:42 97.7 66 19 129/57 (81) 96 97.7 09/02/24 07:30 Room Air* 0 21 Total Intake and Output 09/01/24 09/01/24 09/02/24 15:00 23:00 07:00 Intake Total 1000 ml 50 ml 200 ml Balance 1000 ml 50 ml 200 ml medications Current Medications Medications Dose Ordered Sig/Brandon Route Start Time Stop Time Status Last Admin Dose Admin Acetaminophen 650 mg Q6HP PRN PO 09/01/24 17:15 Ondansetron HCl 4 mg Q4HP PRN IV 09/01/24 17:15 09/02/24 10:59 4 MG Enoxaparin Sodium 40 mg DAILY SC 09/02/24 10:00 09/02/24 09:48 40 MG Levofloxacin/ Dextrose 150 ml @ 100 mls/hr Q48H IV 09/01/24 17:30 09/01/24 20:14 100 MLS/HR Metronidazole 100 ml @ 100 mls/hr Q8HR IV 09/01/24 22:00 09/02/24 13:59 100 MLS/HR Diagnostic Test (Pha) 1 strip Q6HR 09/01/24 18:00 09/02/24 11:49 1 STRIP Insulin Human Regular Q6HR SC 09/01/24 18:00 Dextrose 50 ml UD PRN IV 09/01/24 17:45 Metoprolol Succinate 25 mg DAILY PO 09/02/24 10:00 09/02/24 09:49 25 MG Hydralazine HCl 10 mg Q6HP PRN IV 09/01/24 17:45 Allopurinol 300 mg DAILY PO 09/02/24 10:00 09/02/24 09:48 300 MG Lorazepam 0.5 mg Q6HP PRN IV 09/01/24 17:45 09/02/24 10:59 0.5 MG Pantoprazole Sodium 40 mg BID IV 09/01/24 22:00 09/02/24 09:47 40 MG Examination Obese female patient sitting in a chair in ER comfortably. In no acute distress. General: Obese, afebrile, palor, mucosae are moist Cardiovascular: Regular S1 and S2. No murmurs, gallops or rubs. No JVD elevation. No pedal edema Respiratory: Normal B/L air entry on room air. Clear lung sounds on auscultation Abdomen: Soft, epigastric and left lower quadrant tenderness, nondistended, hypoactive bowel sounds, no rebound tenderness, no organomegaly, no masses Genitourinary: Deferred MSK/skin: Mobilizes 4 limbs. Skin is dry and warm Neurological: No motor, no sensitive deficits, normal speech. Pupils are isocoric and reactive. Psych/Mental Status: A/Ox4 laboratory and microbiology Laboratory Tests 09/02/24 04:51 Test 09/02/24 04:51 Range/Units Serum Glucose 115 H 74-106 mg/dL Labs and/or images reviewed: Labs reviewed by me, Image(s) reviewed by me Problem List/Assessment/Plan Problem List/Assessment/Plan Diffuse abdominal pain secondary to Acute sigmoid diverticulitis-5th episode in this year Intractable nausea and vomiting Bibasilar atelectasis Started IV levofloxacin and IV metronidazole Q 8 hour starting 09/01 Started clear liquid diet 09/02 Last colonoscopy and endoscopy 07/2023 at [facility] showed diverticulosis ESR 38, CRP wnl CT scan completed 09/01 shows colonic diverticulosis with mild sigmoid diverticulitis. Also showed mild gastric wall thickening which may be due to inadequate distention versus gastritis Outpatient colonoscopy advised Liver ultrasound shows hepatomegaly but otherwise unremarkable. Liver measures 17.5 cm. Gastritis Pantoprazole 40 mg IV b.i.d. Outpatient EGD advised Type 2 diabetes mellitus- A1c 6.1 as of 07/05 - controlled Initiated mild ISS Goal blood glucose 140 to 180 mg/dL Nonobstructing right renal calculi Atrophic right kidney Monitor Influenza a positive Patient tested a positive for influenza A on 08/26 Influenza and COVID testing negative Umbilical hernia Seen on CT scan Outpatient workup advised ZENY questionable vasomotor nephropathy-resolved Creatinine 1.26 from 1.44, baseline 1.0 DC IV fluids Hypertension Continue home medication metoprolol XL 25 mg daily Holding losartan given the ZENY Hydralazine 10 mg IV q.6 p.r.n. for SBP greater than 160 mmHg GERD Pantoprazole 40 mg b.i.d. History of migraine headache Continue rizatriptan 50 mg p.o. p.r.n. History of gout Continue home medication allopurinol 300 mg daily History of anxiety and panic disorder Continue home medication Ativan 0.5 mg p.r.n. Diet: Clear liquid DVT prophylaxis Lovenox 40 mg sc daily Plan discussed with patient in which all questions have been answered Goals of care discussed with patient for more than 30 minutes, full code status Case discussed with Dr. Parisi Plan discussed with: Patient, Spouse (At the bedside) My Orders My Orders Orders - ALAINA MADRIGAL RESIDENT Procedure Category Date Status Time Admit ADMIT 09/01/24 Transmitted 17:02 Code Status CODE 09/01/24 Transmitted 17:02 Vital Signs ZULEMA 09/01/24 In Process 17:02 Acetaminophen Tablet PHA 09/01/24 In Process (Tylenol Tablet) 17:15 Notify Md Of Changes ZULEMA 09/01/24 In Process From Base 17:02 Advance Directive ZULEMA 09/01/24 In Process 17:02 Ondansetron Hcl PHA 09/01/24 In Process (Zofran) 17:15 Enoxaparin Sodium PHA 09/02/24 In Process (Lovenox) 10:00 Levofloxacin 750mg PHA 09/01/24 In Process (Levaquin) 17:30 Metronidazole PHA 09/01/24 In Process 500mg/100ml (Flagyl 22:00 Drug Screen LAB 09/01/24 Logged 17:33 Stool Occult Blood LAB 09/01/24 Logged 17:33 Glucose Blood PHA 09/01/24 In Process (Accu-Chek Comfort 18:00 Insulin R (Human) PHA 09/01/24 In Process (Insulin R) 18:00 Dextrose 50% Syringe PHA 09/01/24 In Process 17:45 Metoprolol Xl PHA 09/02/24 In Process Succinate (Toprol Xl) 10:00 Hydralazine Injection PHA 09/01/24 In Process (Apresoline Inject 17:45 Allopurinol Tablet PHA 09/02/24 In Process (Zyloprim Tablet) 10:00 Lorazepam 2mg/Ml Inj PHA 09/01/24 In Process (Ativan Inj) 17:45 Abdomen Complete US 09/01/24 Resulted Sonogram 19:02 Pantoprazole PHA 09/01/24 In Process (Protonix) 22:00 Electrocardigram EKG 09/01/24 Logged 19:06 Clear Liq Diet DIET 09/02/24 Transmitted Lunch Date of Service: Sep 02, 2024 Billing Provider: GISELLE PARISI MD Common Visit Codes: [id number] INP/OBS CARE(HIGH) ALAINA MADRIGAL RESIDENT Sep 02, 2024 15:42 GISELLE PARISI MD Sep 02, 2024 22:30
[2024-09-03] VITALS (7 sets, daily range): BP systolic 125–149; BP diastolic 48–66; PULSE 54–75; RESP 16–18; TEMP 97.6–98.5; O2SAT 94–97
[2024-09-03 07:34] LABS: Anion Gap 10 (5-15); Calcium 9.9 mg/dL (8.7-10.4); Potassium 4.3 mmol/L (3.5-5.1); Sodium 142 mmol/L (136-145)
[2024-09-03 07:37] LABS: Carbon Dioxide 20 mmol/L (20-31); Chloride 112 mmol/L (98-107)
[2024-09-03 07:40] LABS: BUN/Creatinine Ratio 5.2 (10.0-20.0); Glucose 104 mg/dL (74-106)
[2024-09-03 07:44] LABS: Blood Urea Nitrogen 6 mg/dL (9-23)
--- NOTE | 2024-09-03 18:16 | DVHPNRES ---
Progress Note Date Seen: Sep 03, 2024 Resident Creating Document: ALAINA MADRIGAL RESIDENT Medical Necessity Reason Pt with a Central, PICC or Fol: No Subjective Review of Systems This is a 59-year-old female patient with PMHx of recurrent episodes of diverticulitis, atrophic right kidney, left-sided kidney cyst, type 2 diabetes mellitus diagnosed in 2013, ocular migraine, panic disorder, GERD, hypertension, dyslipidemia who presented to the ER with the chief complaint of abdominal pain, nausea, vomiting and generalized weakness starting 08/27. She was recently hospitalized in this facility in June for diverticulitis. She did not underwent colonoscopy after discharge. Patient reports multiple hospitalizations in this year at [facility] for diverticulitis in November/December/May. Patient reports being positive for influenza A on 08/26. She visited urgent care on 08/27 for abdominal pain and was started on tablet ciprofloxacin and metronidazole which she took for the next 3 days but did not improve her condition and therefore she decided to check in the ER. She reports sharp pain in the left lower quadrant of the abdomen. The pain worsens on walking. Associated symptoms include generalized weakness, nausea, vomiting which is mucoid and yellowish, denies blood in the vomit. She reports that she has a last bowel movement yesterday night but it was like green peas and pellet like in shape. Her last EGD and colonoscopy was completed in August 01 which showed diverticulosis. PCP [facility] Home medication: Metformin 500 mg twice daily, atorvastatin 10 mg HS daily, losartan 50 mg HS daily, metoprolol XL 25 mg HS daily, hydroxyzine 50 mg p.r.n., lorazepam 0.5 mg p.r.n., pantoprazole 40 mg daily, allopurinol 300 mg daily, prednisolone 20 mg p.r.n., rizatriptan 5 mg p.r.n., ondansetron 4 mg p.r.n., fluticasone nasal spray 50 mcg p.r.n., diclofenac 1% gel p.r.n., colchicine 0.6 mg p.r.n. Past Medical history: PMHx of recurrent episodes of diverticulitis, left-sided kidney cyst, type 2 diabetes mellitus diagnosed in 2013, ocular migraine, panic disorder, GERD, hypertension, dyslipidemia Past surgical history: Full hysterectomy 2017, tubal ligation, appendectomy 2005 Family history: CVA (In mother), Hypertension, Other (Melanoma in father) Social history: Lives with , denies smoking/drinking/illicit drug use 09/02 - Patient seen and examined at bedside. Started clear liquid diet. Patient reports decreased appetite and nausea. QTC 430 09/03 - patient seen and examined at bedside. FOBT negative. Had Two bowel movements. Creatinine downtrending. Patient reports nausea on liquid diet. Objective vital signs Vital Sign Date Time Temp Pulse Resp B/P (MAP) Pulse Ox O2 Delivery O2 Flow Rate FiO2 09/03/24 16:44 97.9 68 18 127/61 (83) 97 97.9 09/03/24 07:30 Room Air* 0 21 Total Intake and Output 09/02/24 09/02/24 09/03/24 15:00 23:00 07:00 Intake Total 100 ml 775 ml 580 ml Balance 100 ml 775 ml 580 ml medications Current Medications Medications Dose Ordered Sig/Brandon Route Start Time Stop Time Status Last Admin Dose Admin Acetaminophen 650 mg Q6HP PRN PO 09/01/24 17:15 Ondansetron HCl 4 mg Q4HP PRN IV 09/01/24 17:15 09/03/24 17:31 4 MG Levofloxacin/ Dextrose 150 ml @ 100 mls/hr Q48H IV 09/01/24 17:30 09/03/24 17:19 100 MLS/HR Metronidazole 100 ml @ 100 mls/hr Q8HR IV 09/01/24 22:00 09/03/24 13:22 100 MLS/HR Diagnostic Test (Pha) 1 strip Q6HR 09/01/24 18:00 09/03/24 12:09 1 STRIP Insulin Human Regular Q6HR SC 09/01/24 18:00 Dextrose 50 ml UD PRN IV 09/01/24 17:45 Metoprolol Succinate 25 mg DAILY PO 09/02/24 10:00 09/03/24 10:33 25 MG Hydralazine HCl 10 mg Q6HP PRN IV 09/01/24 17:45 Allopurinol 300 mg DAILY PO 09/02/24 10:00 09/03/24 10:33 300 MG Lorazepam 0.5 mg Q6HP PRN IV 09/01/24 17:45 09/02/24 10:59 0.5 MG Pantoprazole Sodium 40 mg BID IV 09/01/24 22:00 09/03/24 10:31 40 MG Examination Obese female patient lying comfortably in the bed. In no acute distress. General: Obese, afebrile, palor, mucosae are moist Cardiovascular: Regular S1 and S2. No murmurs, gallops or rubs. No JVD elevation. No pedal edema Respiratory: Normal B/L air entry on room air. Clear lung sounds on auscultation Abdomen: Soft, epigastric and left lower quadrant tenderness, nondistended, hypoactive bowel sounds, no rebound tenderness, no organomegaly, no masses Genitourinary: Deferred MSK/skin: Mobilizes 4 limbs. Skin is dry and warm Neurological: No motor, no sensitive deficits, normal speech. Pupils are isocoric and reactive. Psych/Mental Status: A/Ox4 laboratory and microbiology Laboratory Tests 09/03/24 06:00 09/02/24 04:51 Test 09/03/24 06:00 Range/Units Serum Glucose 104 74-106 mg/dL Labs and/or images reviewed: Labs reviewed by me, Image(s) reviewed by me Problem List/Assessment/Plan Problem List/Assessment/Plan Diffuse abdominal pain secondary to Acute sigmoid diverticulitis-5th episode in this year Intractable nausea and vomiting Bibasilar atelectasis Started IV levofloxacin and IV metronidazole Q 8 hour starting 09/01 Started full liquid diet 09/03 Last colonoscopy and endoscopy 07/2023 at [facility] showed diverticulosis ESR 38, CRP wnl CT scan completed 09/01 shows colonic diverticulosis with mild sigmoid diverticulitis. Also showed mild gastric wall thickening which may be due to inadequate distention versus gastritis Outpatient colonoscopy advised Liver ultrasound shows hepatomegaly but otherwise unremarkable. Liver measures 17.5 cm. Gastritis Pantoprazole 40 mg IV b.i.d. Outpatient EGD advised FOBT negative Type 2 diabetes mellitus- A1c 6.1 as of 07/05 - controlled Initiated mild ISS Goal blood glucose 140 to 180 mg/dL Nonobstructing right renal calculi Atrophic right kidney secondary to possible fibromuscular dysplasia Outpatient Nephrology workup advised Avoid CARMEN inhibitor and ARB Influenza a positive Patient reports being tested a positive for influenza A on 08/26 Influenza and COVID testing negative Umbilical hernia Seen on CT scan Outpatient workup advised ZENY questionable vasomotor nephropathy-resolved Creatinine downtrending 1.16 from 1.44, baseline 1.0 DC IV fluids Hypertension Continue home medication metoprolol XL 25 mg daily Holding losartan given the ZENY Hydralazine 10 mg IV q.6 p.r.n. for SBP greater than 160 mmHg GERD Pantoprazole 40 mg b.i.d. History of migraine headache Continue rizatriptan 50 mg p.o. p.r.n. History of gout Continue home medication allopurinol 300 mg daily History of anxiety and panic disorder Continue home medication Ativan 0.5 mg p.r.n. Diet: Clear liquid DVT prophylaxis Lovenox 40 mg sc daily Plan discussed with patient in which all questions have been answered Goals of care discussed with patient for more than 30 minutes, full code status Case discussed with Dr. Garcia Plan discussed with: Patient My Orders My Orders Orders - ALAINA MADRIGAL Procedure Category Date Status Time Full Liq Diet DIET 09/03/24 Transmitted Lunch Date of Service: Sep 03, 2024 Billing Provider: TITA GARCIA MD Common Visit Codes: [id number] INP/OBS CARE(HIGH) Secondary Visit Codes: [id number] CARE PLAN 30 MINUTES ALAINA MADRIGAL Sep 03, 2024 18:16 TITA GARCIA MD Sep 06, 2024 12:26
[2024-09-04 01:00] VITALS: BP 154/55; PULSE 60; RESP 18; TEMP 97.7; O2SAT 96
[2024-09-04 05:00] VITALS: BP 153/53; PULSE 60; RESP 19; TEMP 98; O2SAT 96
[2024-09-04 08:12] LABS: Anion Gap 12 (5-15); Sodium 140 mmol/L (136-145)
[2024-09-04 08:13] LABS: Calcium 9.9 mg/dL (8.7-10.4)
[2024-09-04 08:17] LABS: Carbon Dioxide 19 mmol/L (20-31); Chloride 109 mmol/L (98-107)
[2024-09-04 08:18] LABS: BUN/Creatinine Ratio 6.9 (10.0-20.0); Glucose 105 mg/dL (74-106)
[2024-09-04 08:19] LABS: Blood Urea Nitrogen 8 mg/dL (9-23)
[2024-09-04 09:00] VITALS: BP 120/61; PULSE 64; RESP 16; TEMP 97.5; O2SAT 95
[2024-09-04 13:00] VITALS: BP 156/64; PULSE 63; RESP 16; TEMP 97.9; O2SAT 98
[2024-09-04] MEDS ORDERED: MET500T PO (15:04)
[2024-09-04] MEDS ORDERED: LEVO500T91 PO (15:04)
[2024-09-04 16:21] VITALS: BP 151/68; PULSE 77; RESP 16; TEMP 98.3; O2SAT 100
[2024-09-04 16:37] VITALS: BP 151/61; PULSE 77; RESP 16; TEMP 98.3; O2SAT 95
--- NOTE | 2024-09-04 18:10 | DVHDSRES ---
Discharge Summary Date of Admission Resident Creating Document: ALAINA MADRIGAL RESIDENT Sep 01, 2024 at 17:02 Date of Discharge: Sep 04, 2024 Admitting Diagnosis Abdominal pain nausea and vomiting Labs/Diagnostic Data: Laboratory Results Test 09/04/24 15:56 09/04/24 06:37 09/03/24 01:30 09/02/24 04:51 POC Glucose 87 mg/dl (70-106) Sodium Level 140 mmol/L (136-145) Potassium Level 4.0 mmol/L (3.5-5.1) Chloride Level 109 mmol/L (98-107) Carbon Dioxide Level 19 mmol/L (20-31) Anion Gap 12 (5-15) Blood Urea Nitrogen 8 mg/dL (9-23) Creatinine 1.16 mg/dL (0.550-1.02) Glomerular Filtration Rate Calc 54 mL/min (>90) BUN/Creatinine Ratio 6.9 (10.0-20.0) Serum Glucose 105 mg/dL (74-106) Calcium Level 9.9 mg/dL (8.7-10.4) Stool Occult Blood Negative (Negative) Stool Occult Blood Sample #3 (Negative) White Blood Count 5.5 10^3/uL (4.4-10.8) Red Blood Count 4.20 10^6/uL (4.0-5.20) Hemoglobin 12.0 g/dL (12.2-16.2) Hematocrit 37.0 % (36.0-46.0) Mean Corpuscular Volume 88.2 fL (80.0-100.0) Mean Corpuscular Hemoglobin 28.6 pg (28.0-32.0) Mean Corpuscular Hemoglobin Concent 32.5 g/dL (32.0-36.0) Red Cell Distribution Width 14.5 % (11.8-14.3) Platelet Count 293 10^3/uL (140-450) Mean Platelet Volume 7.6 fL (6.9-10.8) Neutrophils (%) (Auto) 49.1 % (37.0-80.0) Lymphocytes (%) (Auto) 38.8 % (10.0-50.0) Monocytes (%) (Auto) 10.3 % (0.0-12.0) Eosinophils (%) (Auto) 1.5 % (0.0-7.0) Basophils (%) (Auto) 0.3 % (0.0-2.0) Neutrophils # (Auto) 2.7 10 ^3/uL (1.6-8.6) Lymphocytes # (Auto) 2.1 10 ^3/uL (0.4-5.4) Monocytes # (Auto) 0.6 10 ^3/uL (0-1.3) Eosinophils # (Auto) 0.1 10 ^3/uL (0-0.8) Basophils # (Auto) 0 10 ^3/uL (0-0.2) Nucleated Red Blood Cells 0.1 % Prothrombin Time 11.5 sec (9.3-11.8) Prothrombin Time INR 1.09 (0.9-1.15) Activated Partial Thromboplast Time 26.7 SEC (24.5-34.5) Total Bilirubin 1.1 mg/dL (0.2-1.0) Aspartate Amino Transferase (AST) 41 U/L (13-40) Alanine Aminotransferase (ALT) 54 U/L (7-40) Alkaline Phosphatase 67 U/L (46-116) Total Protein 6.1 g/dL (5.7-8.2) Albumin 3.6 g/dL (3.2-4.8) Test 09/02/24 03:56 09/02/24 00:00 09/01/24 14:00 09/01/24 13:43 Influenza Type A Antigen Negative (Negative) Influenza Type B Antigen Negative (Negative) SARS-CoV-2 Antigen (Rapid) Negative (NEGATIVE) Urine Color Yellow (Yellow) Urine Clarity Clear (Clear) Urine pH 6.0 (5.0-9.0) Urine Specific [place] 1.017 (1.001-1.035) Urine Protein Trace (Negative) Urine Ketones Trace (Negative) Urine Blood Negative /uL (Negative) Urine Nitrite Negative (Negative) Urine Bilirubin Negative (Negative) Urine Urobilinogen Normal mg/dL (Negative) Urine Leukocyte Esterase 1+ /uL (Negative) Urine RBC 2 /hpf (0 - 4) Urine WBC 2 /hpf (0 - 5) Urine Squamous Epithelial Cells Few /hpf (<5) Urine Bacteria None seen /hpf (None Seen) Urine Mucus Few (None Seen) Urine Glucose Normal mg/dL (Normal) Erythrocyte Sedimentation Rate 38 mm/hr (0-20) Magnesium Level 1.8 mg/dL (1.6-2.6) Direct Bilirubin 0.4 mg/dL (<0.3) C-Reactive Protein High Sensitivity 0.24 mg/dL (<1.0) Lipase 47 U/L (12-53) Thyroid Stimulating Hormone (TSH) 2.49 uIU/mL (0.55-4.78) Other Laboratory Tests 09/04/24 06:37 09/02/24 04:51 Brief Hx & Hospital Course: This is a 59-year-old female patient with PMHx of recurrent episodes of diverticulitis, atrophic right kidney, left-sided kidney cyst, type 2 diabetes mellitus diagnosed in 2013, ocular migraine, panic disorder, GERD, hypertension, dyslipidemia who presented to the ER with the chief complaint of abdominal pain, nausea, vomiting and generalized weakness starting 08/27. She was recently hospitalized in this facility in June for diverticulitis. She did not underwent colonoscopy after discharge. Patient reports multiple hospitalizations in this year at [facility] for diverticulitis in November/December/May. Patient reports being positive for influenza A on 08/26. She visited urgent care on 08/27 for abdominal pain and was started on tablet ciprofloxacin and metronidazole which she took for the next 3 days but did not improve her condition and therefore she decided to check in the ER. She reports sharp pain in the left lower quadrant of the abdomen. The pain worsens on walking. Associated symptoms include generalized weakness, nausea, vomiting which is mucoid and yellowish, denies blood in the vomit. She reports that she has a last bowel movement yesterday night but it was like green peas and pellet like in shape. Her last EGD and colonoscopy was completed in August 01 which showed diverticulosis. PCP [facility] Home medication: Metformin 500 mg twice daily, atorvastatin 10 mg HS daily, losartan 50 mg HS daily, metoprolol XL 25 mg HS daily, hydroxyzine 50 mg p.r.n., lorazepam 0.5 mg p.r.n., pantoprazole 40 mg daily, allopurinol 300 mg daily, prednisolone 20 mg p.r.n., rizatriptan 5 mg p.r.n., ondansetron 4 mg p.r.n., fluticasone nasal spray 50 mcg p.r.n., diclofenac 1% gel p.r.n., colchicine 0.6 mg p.r.n. During hospital workup,CT scan completed 09/01 shows colonic diverticulosis with mild sigmoid diverticulitis. Also showed mild gastric wall thickening which may be due to inadequate distention versus gastritis. Patient was started on IV levofloxacin and IV metronidazole starting 09/01 till 09/04. Patient had intractable nausea and vomiting initially, started clear liquid diet which was advanced as tolerated. Last colonoscopy and endoscopy 07/2023 at [place] showed diverticulosis. Patient was recommended outpatient colonoscopy within 6- 8 weeks. She also received pantoprazole 40 mg IV b.i.d. during the hospital stay. FOBT was negative. For her diabetes, mild ISS was initiated. Patient also had atrophic right kidney secondary to possible fibromuscular dysplasia patient outpatient Nephrology workup advised. She was advised to avoid CARMEN inhibitor and ARB. She had ZENY which resolved with IV fluids. Based on the repeated diverticulitis events she was advised outpatient surgeon follow up to get evaluated for surgical options for diverticulitis. 09/04-patient is hemodynamically stable, clinically stable, tolerating full liquid diet and therefore she has been discharged home on p.o. antibiotics for the next 5 days. She is discharged on metronidazole and Levaquin. time spent in discharge planning was 38 mins Operations or Procedures Exam: CT CT AB PEL WO CON-NO ORAL OR IV History: diverticulitis Comparison Study: 07/05/2024 TECHNIQUE: Multidetector CT of the abdomen and pelvis without contrast. Axial, coronal and sagittal multiplanar reformats were obtained from the axial data set by the technologist. Radiation Dose Information: CT Dose: CTDI volume is 16.07 mGy. Dose-length product is 878.85 mGy*cm FINDINGS: Bibasilar atelectasis. Partially visualized heart is unremarkable. Mild hepatomegaly. Otherwise, liver, spleen, gallbladder, pancreas and adrenal glands are unremarkable. Moderate to severe atrophy of the right kidney. Punctate nonobstructing right renal calculi. Otherwise, kidneys, ureters and urinary bladder are unremarkable. Status post hysterectomy. Mild gastric wall thickening. Otherwise, stomach is unremarkable. Small bowel loops unremarkable. Appendix is not definitely visualized. Scattered colonic diverticulosis with minimal fat stranding adjacent to a segment of the sigmoid. Small amount of fecal material within the colon. No intraperitoneal free air or free fluid. No evidence of aortic aneurysm. Mild atherosclerotic calcification of the aorta. No significant lymphadenopathy. Tiny fat containing umbilical hernia. The soft tissues are unremarkable. No destructive osseous lesions are noted. IMPRESSION: Colonic diverticulosis with mild sigmoid diverticulitis. Mild gastric wall thickening which may be due to inadequate distention/gastritis. Additional findings as above. ATED BY: DARLENE HIGH DO DICTATED DATE/TIME: 09/01/241531 SIGNED BY: DARLENE HIGH DO SIGNED DATE/TIME: 09/01/241531 CC: Condition at Discharge: Stable Final Diagnosis/Problems List Diffuse abdominal pain secondary to Acute sigmoid diverticulitis-5th episode in this year Intractable nausea and vomiting Bibasilar atelectasis Probable gastritis Type 2 diabetes mellitus-controlled A1c 6.1 Nonobstructing right renal calculi Atrophic right kidney secondary to possible fibromuscular dysplasia History of influenza infection Umbilical hernia ZENY questionable VMN GERD History of gout History of anxiety and panic disorder History of migraine headache Discharge Disposition: Home Discharge Instruct/Medications Diet: Cardiac 2g Na,low cholest Activity: No Restrictions, As Tolerated Follow Up/Referral: fu with pcp/discharge clinic Medications: resume home meds script to pharmacy Discharge Statement: "Patient was advised to return to the ER or call 911 if any headaches, dizziness, shortness of breath, chest pain, abdominal pain, bleeding, fevers, or worsening of medical condition. Patient was counseled about treatment plan, medications, possible side effects, patientverbalized understanding. All questions were answered to the best of my ability. This discharge took greater then 30 minutes in planning, reviewing documentation, counseling the patient, and discussing with other team members." ASSESSMENT ASSESSMENT Assessment acute diverticulitis Date of Service: Sep 04, 2024 Billing Provider: TITA GARCIA MD Common Visit Codes: 03946-VMI/OBS DISCH DAY >30min ALAINA MADRIGAL RESIDENT Sep 04, 2024 18:10 TITA GARCIA MD Sep 06, 2024 12:33
== END 2024-09-04 18:34 | disposition home or self-care (01) | DRG 391 ==
LOC: ER 13:08 → OVERFLOW 17:02 → WEST WING 17:05
PROVIDERS: ADMIT Internal Medicine; ATTEND Internal Medicine
DX: K57.32 Diverticulitis of large intestine without perforation or abscess without bleeding (principal); N17.0 Acute kidney failure with tubular necrosis; J98.11 Atelectasis; K42.9 Umbilical hernia without obstruction or gangrene; N20.0 Calculus of kidney; K29.70 Gastritis, unspecified, without bleeding; Z20.822 Contact with and (suspected) exposure to COVID-19; K21.9 Gastro-esophageal reflux disease without esophagitis; I12.9 Hypertensive chronic kidney disease with stage 1 through stage 4 chronic kidney disease, or unspecified chronic kidney disease; E11.22 Type 2 diabetes mellitus with diabetic chronic kidney disease; N18.9 Chronic kidney disease, unspecified; E78.5 Hyperlipidemia, unspecified; J10.1 Influenza due to other identified influenza virus with other respiratory manifestations; G43.909 Migraine, unspecified, not intractable, without status migrainosus; M10.9 Gout, unspecified; F41.0 Panic disorder [episodic paroxysmal anxiety]; Z88.5 Allergy status to narcotic agent; Z88.1 Allergy status to other antibiotic agents; Z90.710 Acquired absence of both cervix and uterus; Z90.49 Acquired absence of other specified parts of digestive tract; Z82.3 Family history of stroke; Z82.49 Family history of ischemic heart disease and other diseases of the circulatory system
CPT/HCPCS: 36415; 74176; 76700; 80048; 80053; 80076; 81001; 82270; 82962; 83690; 83735; 84443; 85025; 85610; 85652; 85730; 86141; 87426; 87804; G0378; J1956; J2405; J2470; J3490

== ENCOUNTER 2024-09-01 13:11 | Emergency (ER) | payer MEDICAID | END 2024-09-01 13:46 | disposition left against medical advice (07) | LOC: ER 13:11 | DX: R05.9 Cough, unspecified (principal); Z53.21 Procedure and treatment not carried out due to patient leaving prior to being seen by health care provider ==

== ENCOUNTER 2024-10-18 06:56 | Inpatient (IN) | payer SELFPAY ==
[~2024-10-18] VITALS: Ht 149.9 cm; Wt 81.5 kg
[~2024-10-18 06:56] MED LIST changes: +LEVO500T91 PO; -LEVO750T40 PO; -LOS25T PO; -METF-370 PO; -METR-344 PO
--- NOTE | 2024-10-18 07:46 | ED.PDOC ---
GI ASSESSMENT HPI Comments 59-year-old female with PMHx Diverticulitis presents with a chief complaint of abdominal pain x onset 1800 last night with associated melena. Patient states that her abdomen pain is localized diffusely, nonradiating, is colicky in sensation, and rates her pain a 7/10. Patient reports that she has not had a colonoscopy recently and is waiting to hear from her GI doctors office to schedule one. Patient reports that she has not been taking iron supplements or Pepto Bismol recently. No other symptoms or modifying factors present at this time. Chief Complaint: Abdominal Pain Time Seen by MD: 07:28 Primary Care Provider: NONE Reviewed Notes: Medications, Allergies Allergies: Coded Allergies: Morphine (Verified Allergy, Unknown, 07/05/24) Penicillins (Verified Allergy, Unknown, 07/05/24) Uncoded Allergies: IV BENADRYL (Allergy, Unknown, 07/05/24) Home Meds Active Scripts Metronidazole (Metronidazole) 500 Mg Tab, 500 MG PO TID for 7 Days, #21 TAB Prov:TITA GARCIA MD 09/04/24 Levofloxacin Hemihydrate (LEVAQUIN 500 MG) 500 Mg Tab, 500 MG PO DAILY for 7 Days, #7 TAB Prov:TITA GARCIA MD 09/04/24 Reported Medications Metronidazole (Metronidazole) 500 Mg Tab, 1 TAB PO TID for 10 Days, #30 09/03/24 Ciprofloxacin HCl (Ciprofloxacin Hydrochlori) 500 Mg Tab, 1 TAB PO BID for 10 Days, #20 09/03/24 Hydroxyzine Hcl (Hydroxyzine Hcl) 50 Mg Tab, 2 TAB PO BID for 20 Days, #80 09/03/24 Losartan Potassium (Losartan Potassium) 50 Mg Tab, 1 TAB PO BID for 30 Days, #60 09/03/24 Allopurinol (Allopurinol) 300 Mg Tab, 1 TAB PO DAILY 07/06/24 Pantoprazole Sodium Sesquihydr (Pantoprazole Sodium) 40 Mg Tab, 1 TAB PO QAM 07/06/24 Atorvastatin Calcium (ATORVASTATIN CALCIUM) 10 Mg Tab, 1 TAB PO DAILY for 30 Days, #30 07/06/24 Metoprolol Succinate (Metoprolol Succinate Er) 25 Mg Tab, 1 TAB PO DAILY 07/06/24 Metformin Hydrochloride (Metformin Hydrochloride) 500 Mg Tab, 1 TAB PO BID 07/06/24 Information Source: Patient Mode of Arrival: Ambulatory Timing: Hours Duration: Since onset Prehospital treatment: None Quality: Colicky Vomitus: None Stool: Tarry, Black Severity: Moderate Recent: None Recent Hx of: None Pain Location: Diffuse Associated sign and symptoms: Melena, Abdominal Pain Past Medical History PAST MEDICAL HISTORY: DM, HTN Surgical History: Appendectomy, Hysterectomy 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 Family History Family History: Unknown Social History Smoker: Non-Smoker Alcohol: Denies ETOH Use Drugs: Denies Drug Use Lives In: Home Constitutional: denies: chills, diaphoresis, fatigue, fever, malaise, sweats, weakness, others EENTM: denies: blurred vision, double vision, ear bleeding, ear discharge, ear drainage, ear pain, ear ringing, eye pain, eye redness, hearing loss, mouth pain, mouth swelling, nasal discharge, nose bleeding, nose congestion, nose pain, photophobia, tearing, throat pain, throat swelling, voice changes, others Respiratory: denies: cough, hemoptysis, orthopnea, SOB at rest, shortness of breath, SOB with excertion, stridor, wheezing, others Cardiovascular: denies: chest pain, dizzy spells, diaphoresis, Dyspnea on exertion, edema, irregular heart beat, left arm pain, lightheadedness, palpitations, PND, syncope, others Gastrointestinal: reports: abdominal pain, melena; denies: abdomen distended, blood streaked bowels, constipated, diarrhea, dysphagia, difficulty swallowing, hematemesis, nausea, poor appetite, poor fluid intake, rectal bleeding, rectal pain, vomiting, others Genitourinary: denies: abnormal vagina bleeding, burning, dyspareunia, dysuria, flank pain, frequency, hematuria, incontinence, pain, , vagina discharge, urgency, others Neurological: denies: dizziness, fainting, headache, left sided numbness, left sided weakness, numbness, paresthesia, pre-existing deficit, right sided numbness, right sided weakness, seizure, speech problems, tingling, tremors, w eakness, others Musculoskeletal: denies: back pain, gout, joint pain, joint swelling, muscle pain, muscle stiffness, neck pain, others Integumetry: denies: bruises, change in color, change in hair/nails, dryness, laceration, lesions, lumps, rash, wounds, others Allergic/Immunocompromised: denies: Difficulty Healing, Frequent Infections, Hives, Itching, others Hematologic/Lymphatic: denies: anemia, blood clots, easy bleeding, easy bruising, swollen glands, others Endocrine: denies: excessive hunger, excessive sweating, excessive thirst, excessive urination, flushing, intolerance to cold, intolerance to heat, unexplained weight gain, unexplained weight loss, others Psychiatric: denies: anxiety, bipolar disorder, depression, hopeless, panic disorder, schizophrenia, sleepless, suicidal, others All Other Systems: Reviewed and Negative Physical Exam General Appearance: Mild Distress, Normal HEENT: Normal ENT Inspection, Pharynx Normal, TMs Normal Neck: Full Range of Motion, Non-Tender, Normal, Normal Inspection Respiratory: Chest Non-Tender, Lungs Clear, No Accessory Muscle Use, No Respiratory Distress, Normal Breath Sounds Cardiovascular: No Edema, No JVD, No Murmur, No Gallop, Normal Peripheral Pulses, Regular Rate/Rhythm Breast Exam: Deferred Gastrointestinal: Diffuse, No Organomegaly, No Pulsatile Mass, Normal Bowel Sounds, Soft, Tenderness Genitalia: Deferred Pelvic: Deferred Rectal: Black stool Extremities: No calf tenderness, Normal capillary refill, Normal inspection, Normal range of motion, Non-tender, No pedal edema Musculoskeletal : Apperance: Normal Neurologic: Alert, rollout manager II-XII nml as Tested, No Motor Deficits, Normal Affect, Normal Mood, No Sensory Deficits Cerebellar Function: Normal Reflexes: Normal Skin: Dry, Normal Color, Warm Lymphatic: No Adenopathy Was a procedure done? Was a procedure done?: No GI differential Dx Differential Diagnosis: Cholecystitis, Gastritis/PUD, Gastroenteritis, GI hemorrhage, Dehydration, Electrolyte Imbalance, Renal Failure X-Ray, Labs, Meds, VS Vital Signs Date Time Temp Pulse Resp B/P (MAP) Pulse Ox O2 Delivery O2 Flow Rate FiO2 10/18/24 09:49 97.8 69 18 153/76 (101) 99 97.8 10/18/24 07:55 85 16 97 Room Air* 0 21 10/18/24 07:55 97.8 75 16 159/69 (99) 98 97.8 10/18/24 07:54 97.9 79 15 159/69 (99) 98 97.9 10/18/24 07:14 97.9 88 15 156/75 (102) 97 Lab Test 10/18/24 08:20 10/18/24 07:45 Range/Units Urine Color Light-yellow Yellow Urine Clarity Clear Clear Urine pH 5.5 5.0-9.0 Urine Specific [place] 1.014 1.001-1.035 Urine Protein Trace H Negative Urine Ketones Negative Negative Urine Blood Trace H Negative /uL Urine Nitrite Negative Negative Urine Bilirubin Negative Negative Urine Urobilinogen Normal Negative mg/dL Urine Leukocyte Esterase Negative Negative /uL Urine RBC None seen 0 - 4 /hpf Urine Microscopic WBC < 1 0-5 /HPF Urine Squamous Epithelial Cells Few <5 /hpf Urine Bacteria None seen None Seen /hpf Urine Glucose Normal Normal mg/dL White Blood Count 6.3 4.4-10.8 10^3/uL Red Blood Count 4.86 4.0-5.20 10^6/uL Hemoglobin 14.6 12.2-16.2 g/dL Hematocrit 43.1 36.0-46.0 % Mean Corpuscular Volume 88.7 80.0-100.0 fL Mean Corpuscular Hemoglobin 30.1 28.0-32.0 pg Mean Corpuscular Hemoglobin Concent 33.9 32.0-36.0 g/dL Red Cell Distribution Width 16.7 H 11.8-14.3 % Platelet Count 343 140-450 10^3/uL Mean Platelet Volume 7.4 6.9-10.8 fL Neutrophils (%) (Auto) 54.4 37.0-80.0 % Lymphocytes (%) (Auto) 35.5 10.0-50.0 % Monocytes (%) (Auto) 7.4 0.0-12.0 % Eosinophils (%) (Auto) 1.6 0.0-7.0 % Basophils (%) (Auto) 1.1 0.0-2.0 % Neutrophils # (Auto) 3.4 1.6-8.6 10 ^3/uL Lymphocytes # (Auto) 2.2 0.4-5.4 10 ^3/uL Monocytes # (Auto) 0.5 0-1.3 10 ^3/uL Eosinophils # (Auto) 0.1 0-0.8 10 ^3/uL Basophils # (Auto) 0.1 0-0.2 10 ^3/uL Nucleated Red Blood Cells 0.1 % Sodium Level 139 136-145 mmol/L Potassium Level 3.9 3.5-5.1 mmol/L Chloride Level 106 98-107 mmol/L Carbon Dioxide Level 22 20-31 mmol/L Anion Gap 11 5-15 Blood Urea Nitrogen 10 9-23 mg/dL Creatinine 1.14 H 0.550-1.02 mg/dL Glomerular Filtration Rate Calc 55 >90 mL/min BUN/Creatinine Ratio 8.8 L 10.0-20.0 Serum Glucose 127 H 74-106 mg/dL Calcium Level 10.3 8.7-10.4 mg/dL Total Bilirubin 1.0 0.2-1.0 mg/dL Aspartate Amino Transferase (AST) 49 H 13-40 U/L Alanine Aminotransferase (ALT) 45 H 7-40 U/L Alkaline Phosphatase 98 46-116 U/L Total Protein 8.1 5.7-8.2 g/dL Albumin 5.1 H 3.2-4.8 g/dL Current Medications Medications (Trade) Dose Ordered Sig/Brandon Route Start Time Stop Time Status Last Admin Sodium Chloride 1,000 ml @ 1,000 mls/hr Q1H ONCE IV 10/18/24 07:45 10/18/24 08:44 DC 10/18/24 08:53 Ondansetron HCl (Zofran) 4 mg ONCE ONCE IV 10/18/24 07:45 10/18/24 07:46 DC 10/18/24 08:53 Ketorolac Tromethamine (Toradol Injection) 15 mg ONCE ONCE IV 10/18/24 07:45 10/18/24 07:46 DC 10/18/24 08:54 Time of 1ST Reevaluation: 07:58 Reevaluation 1ST: Unchanged Patient Education/Counseling: Diagnosis, Treatment, Prognosis Family Education/Counseling: Diagnosis, Treatment, Prognosis Departure 1 Departure Time of Disposition: 10:21 (Patient presented with abdominal pain that was concerning for possible appendicits, gastritis, cholecystitis, colitis, gastroenteritis, sbo, or orther possible surgical emergency. Data: 1. I ordered and reviewed the result of at least 3 labs including a CBC, BMP, and Urinalysis. 2. I independently interpreted the following tests: CT Abdoment and Pelvis is concerning for renal malignancy .Risk:This patient has a high risk of morbidity due to further diagnostic testing or treatment and may suffer from an acute abdominal process disorder. Workup reveals melena and renal malignancy and patient should be admitted for further workup. and possible expert consultation. ) Impression: Primary Impression: Melena Additional Impression: Renal mass Disposition: 09 ADMITTED INPATIENT Admit to: Med Surg Condition: Serious Critical Care Note Critical Care Time?: Yes Critical care comment: Intractable abdominal pain Authorized and Performed by: Macario Curry MD Total critical care time: Approximately 37 minutes Due to a high probability of clinically significant, life threatening deterioration, the patient required my highest level of preparedness to intervene emergently and I personally spent this critical care time directly and personally managing the patient. This critical care time included obtaining a history; examining the patient; pulse oximetry; ordering and review of studies; arranging urgent treatment with development of a management plan; evaluation of patient's response to treatment; frequent reassessment; and, discussions with other providers. This critical care time was performed to assess and manage the high probability of imminent, life-threatening deterioration that could result in multi-organ failure. It was exclusive of separately billable procedures and treating other patients and teaching time. Please see my other sections and the rest of the note for further information on patient assessment and treatment. Stability Stability form required: No I personally scribed for MACARIO CURRY MD ([email or web address]) on 10/18/24 at 07:46. Electronically submitted by Abdi Sommers ([email or web address]). MACARIO CURRY MD Oct 18, 2024 07:46
[2024-10-18 07:55] VITALS: PULSE 85; RESP 16; O2SAT 97
[2024-10-18 08:00] LABS: Basophils # (auto) 0.1 10 ^3/uL (0-0.2); Basophils % (auto) 1.1 % (0.0-2.0); Eosinophils # (auto) 0.1 10 ^3/uL (0-0.8); Eosinophils % (auto) 1.6 % (0.0-7.0); Hematocrit 43.1 % (36.0-46.0); Hemoglobin 14.6 g/dL (12.2-16.2); Lymphocytes # (auto) 2.2 10 ^3/uL (0.4-5.4); Lymphocytes % (auto) 35.5 % (10.0-50.0); Mean Corpuscular Hemoglobin 30.1 pg (28.0-32.0); Mean Corpuscular Hgb Conc. 33.9 g/dL (32.0-36.0); Mean Corpuscular Volume 88.7 fL (80.0-100.0); Monocytes # (auto) 0.5 10 ^3/uL (0-1.3); Monocytes % (auto) 7.4 % (0.0-12.0); Neutrophils # (auto) 3.4 10 ^3/uL (1.6-8.6); Neutrophils % (auto) 54.4 % (37.0-80.0); Nucleated Red Blood Cells % 0.1 %; Platelet Count (auto) 343 10^3/uL (140-450); Red Blood Cells 4.86 10^6/uL (4.0-5.20); Red Cell Distribution Width 16.7 % (11.8-14.3); White Blood Cell 6.3 10^3/uL (4.4-10.8)
[2024-10-18] MEDS: IOHEXOL 300 MG/ML 100ML BOTTLE IJ ONE (08:06)
[2024-10-18 08:19] LABS: Alkaline Phosphatase 98 U/L (46-116); Anion Gap 11 (5-15); BUN/Creatinine Ratio 8.8 (10.0-20.0); Blood Urea Nitrogen 10 mg/dL (9-23); Calcium 10.3 mg/dL (8.7-10.4); Carbon Dioxide 22 mmol/L (20-31); Chloride 106 mmol/L (98-107); Potassium 3.9 mmol/L (3.5-5.1); Sodium 139 mmol/L (136-145); Total Protein 8.1 g/dL (5.7-8.2)
[2024-10-18 08:20] LABS: Alanine Aminotransferase 45 U/L (7-40); Albumin 5.1 g/dL (3.2-4.8); Aspartate Aminotransferase 49 U/L (13-40); Glucose 127 mg/dL (74-106)
[2024-10-18 08:22] LABS: Urine Bacteria None Seen /hpf (None Seen)
[2024-10-18 08:30] LABS: Urine Blood TRACE /uL (Negative); Urine Clarity Clear (Clear); Urine Color Light-Yellow (Yellow); Urine Protein, UAD TRACE (Negative); Urine Specific Gravity 1.014 (1.001-1.035); Urine Squamous Epithelial Cell FEW /hpf (<5); Urine Urobilinogen Normal (Negative); Urine WBC < 1 /HPF (0-5); Urine pH 5.5 (5.0-9.0)
[2024-10-18] MEDS: ONDANSETRON HCL 4 MG/2 ML VIAL IV ONE (08:53)
[2024-10-18] MEDS: SODIUM CHLORIDE 0.9% 1,000 ML IV ONE (08:53)
[2024-10-18] MEDS: KETOROLAC TROMETH 30 MG/ML 1ML VIAL IV ONE (08:54)
--- NOTE | 2024-10-18 09:03 | DVH ---
XY L FOOT 3 VIEW XRAY INDICATION: foot pain TECHNICAL DATA: Frontal, oblique and lateral views were obtained of the left foot. COMPARISON: None FINDINGS: No fracture is identified. Joint spaces are maintained. Alignment is anatomic. The hallux sesamoids a ppear normal. There is a plantar calcaneal spur. Soft tissues are within normal limits. IMPRESSION: 1. No acute fracture or dislocation of the left foot.
--- NOTE | 2024-10-18 09:53 | DVH ---
Exam: CT CT AB PEL WITH IV CON ONLY History: llq pain Comparison Study: CT scan of the abdomen pelvis dated 07/05/24. Technique: Multidetector spiral CT of the abdomen was performed from lung bases to pubic symphysis. Axial imaging was performed with intravenous contrast. Coronal and sagittal multiplanar reformats we re obtained from the axial data set by the technologist. Radiation Dose : 1. Abdomen/Pelvis: CTDIvol 16.9 mGy, DLP 918.2 mGy*cm. Findings: Lung Bases: Lung bases are clear. Visualized portions of the heart and pericardium are unremarkable. Liver: The liver is normal in size. No focal lesions. Gallbladder and Biliary Tree: The gallbladder is unremarkable. No intrahepatic or extrahepatic bilia ry ductal dilatation. Spleen: Unremarkable Pancreas: The pancreas enhances normally and there are no focal lesions. The main pancreatic duct i s not dilated Adrenal Glands: Unremarkable Kidneys: There is a heterogeneously enhancing mass in the upper pole of the left kidney measuring 2.2 by 1.9 cm. There is right renal atrophy. GI tract: Hiatal hernias. No evidence of small bowel wall thickening or abnormal dilatation to sugges t bowel obstruction. Colonic diverticulosis without acute diverticulitis. Appendix is not visualized, however no inflammatory changes are noted in the right lower quadrant. Peritoneum/mesentery/retroperitoneum. No evidence of free intraperitoneal air. No ascites. No evidenc e of suspicious lymphadenopathy. Abdominal Wall: Unremarkable. Vasculature: Abdominal aorta and main branches are unremarkable. Normal vascular enhancement. Urinary Bladder: Grossly unremarkable for degree of distention. Pelvic Organs: Unremarkable Musculoskeletal: No aggressive focal bony lesions, acute fractures or dislocation. IMPRESSION: 1. 2.2 cm mass in the upper pole of the left kidney. This is concerning for malignancy. 2. Right renal atrophy. 3. Colonic diverticulosis without diverticulitis. 4. Hiatal hernia.
--- NOTE | 2024-10-18 12:28 | DVHHP2 ---
History of Present Illness Reason for Visit: Abdominal pain History of Present Illness This 59-year-old female with past medical history of diverticulitis presents in the ED with a chief complaint of abdominal pain. The patient reports abdominal pain on right lower quadrant associated with black tarry stools and bloating started last night. Denies fever, chills, nausea, vomiting, constipation, or diarrhea. Past medical history of hypertension, diabetes, anxiety, and gout. Past Medical History As stated in HPI Family History Reviewed, non-contributory to the management of this case. Past Social History The patient lives at home, denies smoking, alcohol or illicit drugs abuse. Review of Systems Constitutional: Yes: Malaise; No: Fever, Chills, Sweats, Weakness, Other Eyes: No: Pain, Vision change, Conjunctivae inflammation, Eyelid inflammation, Other, Redness ENT: No: Ear pain, Ear discharge, Nose pain, Nose discharge, Nose congestion, Mouth pain, Mouth swelling, Throat pain, Throat swelling, Other Respiratory: No: Cough, Dry, Shortness of breath, SOB with excertion, Wheezing, Hemoptysis, Pleuritic Pain, Sputum, Wheezing, Other Gastrointestinal: Abdominal Pain, Other (Black tarry stools); No: Nausea, Vomiting, Diarrhea, Constipation, Melena, Hematochezia Genitourinary: No Dysuria, No Frequency, No Incontinence, No Hematuria, No Retention, No Other Musculoskeletal: No: other, neck pain, shoulder pain, arm pain, back pain, hand pain, leg pain, foot pain Skin: No: Rash, Lesions, Jaundice, Bruising, Other Neurological: No: Weakness, Numbness, Incoordination, Change in speech, Confusion, Seizures, Other Allergies: Coded Allergies: Morphine (Verified Allergy, Unknown, 07/05/24) Penicillins (Verified Allergy, Unknown, 07/05/24) Uncoded Allergies: IV BENADRYL (Allergy, Unknown, 07/05/24) Exam Vital Signs Vital Signs Date Time Temp Pulse Resp B/P (MAP) Pulse Ox O2 Delivery O2 Flow Rate FiO2 10/18/24 09:49 97.8 69 18 153/76 (101) 99 97.8 10/18/24 07:55 Room Air* 0 21 General Appearance: Alert, Oriented X3, Cooperative, mild distress HEENT: Atraumatic, PERRLA, EOMI, Mucous membr. moist/pink Respiratory: Clear to auscultation, Normal air movement Cardiovascular: Regular rate, Normal S1, Normal S2, No murmurs Abdominal: Normal bowel sounds, Soft, No tenderness, No hepatospenomegaly Extremities: No clubbing, No cyanosis, No edema, Normal pulses, No tenderness/swelling Skin: No rashes, No breakdown, No significant lesion Neuro: Normal gait, Normal speech Psych/Mental Status: Mental status NL Labs/Xrays Labs Test 10/18/24 08:20 10/18/24 07:45 Range/Units Urine Color Light-yellow Yellow Urine Clarity Clear Clear Urine pH 5.5 5.0-9.0 Urine Specific [place] 1.014 1.001-1.035 Urine Protein Trace H Negative Urine Ketones Negative Negative Urine Blood Trace H Negative /uL Urine Nitrite Negative Negative Urine Bilirubin Negative Negative Urine Urobilinogen Normal Negative mg/dL Urine Leukocyte Esterase Negative Negative /uL Urine RBC None seen 0 - 4 /hpf Urine Microscopic WBC < 1 0-5 /HPF Urine Squamous Epithelial Cells Few <5 /hpf Urine Bacteria None seen None Seen /hpf Urine Glucose Normal Normal mg/dL White Blood Count 6.3 4.4-10.8 10^3/uL Red Blood Count 4.86 4.0-5.20 10^6/uL Hemoglobin 14.6 12.2-16.2 g/dL Hematocrit 43.1 36.0-46.0 % Mean Corpuscular Volume 88.7 80.0-100.0 fL Mean Corpuscular Hemoglobin 30.1 28.0-32.0 pg Mean Corpuscular Hemoglobin Concent 33.9 32.0-36.0 g/dL Red Cell Distribution Width 16.7 H 11.8-14.3 % Platelet Count 343 140-450 10^3/uL Mean Platelet Volume 7.4 6.9-10.8 fL Neutrophils (%) (Auto) 54.4 37.0-80.0 % Lymphocytes (%) (Auto) 35.5 10.0-50.0 % Monocytes (%) (Auto) 7.4 0.0-12.0 % Eosinophils (%) (Auto) 1.6 0.0-7.0 % Basophils (%) (Auto) 1.1 0.0-2.0 % Neutrophils # (Auto) 3.4 1.6-8.6 10 ^3/uL Lymphocytes # (Auto) 2.2 0.4-5.4 10 ^3/uL Monocytes # (Auto) 0.5 0-1.3 10 ^3/uL Eosinophils # (Auto) 0.1 0-0.8 10 ^3/uL Basophils # (Auto) 0.1 0-0.2 10 ^3/uL Nucleated Red Blood Cells 0.1 % Sodium Level 139 136-145 mmol/L Potassium Level 3.9 3.5-5.1 mmol/L Chloride Level 106 98-107 mmol/L Carbon Dioxide Level 22 20-31 mmol/L Anion Gap 11 5-15 Blood Urea Nitrogen 10 9-23 mg/dL Creatinine 1.14 H 0.550-1.02 mg/dL Glomerular Filtration Rate Calc 55 >90 mL/min BUN/Creatinine Ratio 8.8 L 10.0-20.0 Serum Glucose 127 H 74-106 mg/dL Calcium Level 10.3 8.7-10.4 mg/dL Total Bilirubin 1.0 0.2-1.0 mg/dL Aspartate Amino Transferase (AST) 49 H 13-40 U/L Alanine Aminotransferase (ALT) 45 H 7-40 U/L Alkaline Phosphatase 98 46-116 U/L Total Protein 8.1 5.7-8.2 g/dL Albumin 5.1 H 3.2-4.8 g/dL PROCEDURE(s): ABPLIV - CT AB PEL WITH IV CON ONLY REASON: llq pain ORDER NUMBER(s): [id number], ACCESSION NUMBER(s): [id number] Exam: CT CT AB PEL WITH IV CON ONLY History: llq pain Comparison Study: CT scan of the abdomen pelvis dated 07/05/24. Technique: Multidetector spiral CT of the abdomen was performed from lung bases to pubic symphysis. Axial imaging was performed with intravenous contrast. Coronal and sagittal multiplanar reformats were obtained from the axial data set by the technologist. Radiation Dose : 1. Abdomen/Pelvis: CTDIvol 16.9 mGy, DLP 918.2 mGy*cm. Findings: Lung Bases: Lung bases are clear. Visualized portions of the heart and pericardium are unremarkable. Liver: The liver is normal in size. No focal lesions. Gallbladder and Biliary Tree: The gallbladder is unremarkable. No intrahepatic or extrahepatic biliary ductal dilatation. Spleen: Unremarkable Pancreas: The pancreas enhances normally and there are no focal lesions. The main pancreatic duct is not dilated Adrenal Glands: Unremarkable Kidneys: There is a heterogeneously enhancing mass in the upper pole of the left kidney measuring 2.2 by 1.9 cm. There is right renal atrophy. GI tract: Hiatal hernias. No evidence of small bowel wall thickening or abnormal dilatation to suggest bowel obstruction. Colonic diverticulosis without acute diverticulitis. Appendix is not visualized, however no inflammatory changes are noted in the right lower quadrant. Peritoneum/mesentery/retroperitoneum. No evidence of free intraperitoneal air. No ascites. No evidence of suspicious lymphadenopathy. Abdominal Wall: Unremarkable. Vasculature: Abdominal aorta and main branches are unremarkable. Normal vascular enhancement. Urinary Bladder: Grossly unremarkable for degree of distention. Pelvic Organs: Unremarkable Musculoskeletal: No aggressive focal bony lesions, acute fractures or dislocation. IMPRESSION: 1. 2.2 cm mass in the upper pole of the left kidney. This is concerning for malignancy. 2. Right renal atrophy. 3. Colonic diverticulosis without diverticulitis. 4. Hiatal hernia. Assessment/Plan Assessment/Plan # Rule out GI bleed # acute abdominal pain # diverticulosis without diverticulitis Admit to medical unit FOBT PPI Consult GI # 2.2 cm mass, left kidney, ?Malignancy Urology consult # hypertension Metoprolol Hydralazine # diabetes type 2 ISS Check A1c # gout Allopurinol # JOANA Hydroxyzine Medical plan discussed with patient Plan discussed with: Patient My Orders Orders - DIANA CHOWDARY PHARMACOGNOSIST Procedure Category Date Status Time Admit ADMIT 10/18/24 Transmitted 12:23 Code Status CODE 10/18/24 Transmitted 12:23 0.9% Ns 1000 Ml PHA 10/18/24 Transmitted 12:30 Hydrocodone-Acet PHA 10/18/24 Transmitted 5/325mg Tab ([place] 12:30 Comprehensive LAB 10/19/24 Verified Metabolic Panel 04:00 Condition: Fair ZULEMA 10/18/24 Transmitted 12:23 Acetaminophen Tablet PHA 10/18/24 Transmitted (Tylenol Tablet) 12:30 Clear Liq Diet DIET 10/18/24 Transmitted Lunch Glucose Blood PHA 10/18/24 Transmitted (Accu-Chek Comfort 17:00 Mild Sliding Scale PHA 10/18/24 Transmitted 17:00 Dextrose 50% Syringe PHA 10/18/24 Transmitted 12:30 * Gi [facility] [employer] CONS 10/18/24 Transmitted 12:23 Stool Occult Blood LAB 10/18/24 Transmitted 12:23 Pantoprazole PHA 10/19/24 Transmitted (Protonix) 10:00 Pantoprazole PHA 10/18/24 Transmitted (Protonix) 12:30 Date of Service: Oct 18, 2024 Billing Provider: DIANA CHOWDARY Common Visit Codes: 19874-EAFOELN INP/OBS CARE (HIGH) DIANA CHOWDARY Oct 18, 2024 12:28
[2024-10-18] MEDS ORDERED: DEXTROSE (50%) 50ML SYRG IV PRN (12:30)
[2024-10-18] MEDS ORDERED: hydrALAZINE HCL 20 MG/ML VL IV PRN (12:30)
[2024-10-18] MEDS ORDERED: ACETAMINOPHEN 325 MG TAB PO PRN (12:30)
[2024-10-18] MEDS ORDERED: HYDROcodone-ACET 5/325MG TAB PO PRN ×2 (12:30→12:45)
[2024-10-18] MEDS: PANTOPRAZOLE 40 MG/10 ML VIAL INJ IV ONE ×2 (12:30→17:10)
[2024-10-18] MEDS: SODIUM CHLORIDE 0.9% 1,000 ML IV SCH (14:28)
[2024-10-18] MEDS: InsuLIN REG 1unit/0.01ml Soln (100units/ml) SC SCH (17:00)
[2024-10-18] MEDS: ACCU-CHEK COMFORT CURVE STRIP VI SCH (17:10)
[2024-10-18 18:20] VITALS: BP 160/75; PULSE 55; RESP 18; TEMP 97.8; O2SAT 96
[2024-10-18 18:39] VITALS: PULSE 66; RESP 17; O2SAT 95
[2024-10-18 18:50] VITALS: BP 156/81; PULSE 66; RESP 17; TEMP 98.3; O2SAT 95
[2024-10-18 20:00] VITALS: PULSE 62; RESP 18; O2SAT 94
--- NOTE | 2024-10-18 20:39 | DVHINCON2 ---
Date of service: Oct 18, 2024 Referring Physician Enedina Melvin Reason for Consultation Abdominal pain History of Present Illness This 59-year-old female with past medical history of diverticulitis presents in the ED with a chief complaint of abdominal pain. The patient reports abdominal pain on right lower quadrant associated with black tarry stools and bloating started last night. Stool for occult blood was negative. Denies fever, chills, nausea, vomiting, constipation, or diarrhea. Patient had a EGD and a colonoscopy in July of 2023 at another hospital. She believes her tests were negative at that time. She did have a history of diverticulosis She was also told that that time that she had a renal mass that they were monitoring and it was about 2.5 cm in size. Past Medical History Past medical history of hypertension, diabetes, anxiety, and gout. Past Surgical History Tubal ligation Hysterectomy Appendectomy Family History: Cardiovascular disease G8 MOTHER G8 FATHER Diabetes mellitus G8 MOTHER Hypertension G8 MOTHER G8 FATHER Allergies: Coded Allergies: Morphine (Verified Allergy, Unknown, 07/05/24) Penicillins (Verified Allergy, Unknown, 07/05/24) Uncoded Allergies: IV BENADRYL (Allergy, Unknown, 07/05/24) Home Meds Active Scripts Metronidazole (Metronidazole) 500 Mg Tab, 500 MG PO TID for 7 Days, #21 TAB Prov:TITA GARCIA MD 09/04/24 Levofloxacin Hemihydrate (LEVAQUIN 500 MG) 500 Mg Tab, 500 MG PO DAILY for 7 Days, #7 TAB Prov:TITA GARCIA MD 09/04/24 Reported Medications Metronidazole (Metronidazole) 500 Mg Tab, 1 TAB PO TID for 10 Days, #30 09/03/24 Ciprofloxacin HCl (Ciprofloxacin Hydrochlori) 500 Mg Tab, 1 TAB PO BID for 10 Days, #20 09/03/24 Hydroxyzine Hcl (Hydroxyzine Hcl) 50 Mg Tab, 2 TAB PO BID for 20 Days, #80 09/03/24 Losartan Potassium (Losartan Potassium) 50 Mg Tab, 1 TAB PO BID for 30 Days, #60 09/03/24 Allopurinol (Allopurinol) 300 Mg Tab, 1 TAB PO DAILY 07/06/24 Pantoprazole Sodium Sesquihydr (Pantoprazole Sodium) 40 Mg Tab, 1 TAB PO QAM 07/06/24 Atorvastatin Calcium (ATORVASTATIN CALCIUM) 10 Mg Tab, 1 TAB PO DAILY for 30 Days, #30 07/06/24 Metoprolol Succinate (Metoprolol Succinate Er) 25 Mg Tab, 1 TAB PO DAILY 07/06/24 Metformin Hydrochloride (Metformin Hydrochloride) 500 Mg Tab, 1 TAB PO BID 07/06/24 Current Medications Current Medications Medications (Trade) Dose Ordered Sig/Brandon Route PRN Reason Start Time Stop Time Status Last Admin Sodium Chloride 1,000 ml @ 60 mls/hr [id number] IV 10/18/24 12:30 10/18/24 14:28 Acetaminophen/ Hydrocodone Bitart ([place] 5/325MG Tab) 1 tab Q4HP PRN PO MODERATE PAIN (4-6 PAIN SCALE) 10/18/24 12:30 10/18/24 12:54 DC Acetaminophen (Tylenol Tablet) 650 mg Q6HP PRN PO PAIN SCALE 1-3 OR TEMP>100.4 10/18/24 12:30 Diagnostic Test (Pha) (Accu-Chek Comfort Curve T) 1 strip ACHS 10/18/24 17:00 10/18/24 17:10 Insulin Human Regular (InsuLIN R) ACHS SC 10/18/24 17:00 Dextrose 50 ml UD PRN IV Blood Sugar LESS THAN 60 10/18/24 12:30 Pantoprazole Sodium (Protonix) 40 mg DAILY IV 10/19/24 10:00 Hydralazine HCl (Apresoline Injection) 10 mg Q6HP PRN IV SBP>150 10/18/24 12:30 Acetaminophen/ Hydrocodone Bitart ([place] 5/325MG Tab) 1 tab Q4HP PRN PO MODERATE PAIN (4-6 PAIN SCALE) 10/18/24 12:45 Hold Losartan Potassium (Cozaar Tablet) 50 mg BID PO 10/18/24 22:00 Allopurinol (Zyloprim Tablet) 300 mg DAILY PO 10/19/24 10:00 Atorvastatin Calcium (Lipitor) 10 mg HS PO 10/18/24 22:00 Hydroxyzine Pamoate (Vistaril Oral) 50 mg BID PO 10/18/24 22:00 11/06/24 21:59 Metoprolol Tartrate (Lopressor Tablet) 25 mg DAILY PO 10/19/24 10:00 Vital Signs Vital Signs Date Time Temp Pulse Resp B/P (MAP) Pulse Ox O2 Delivery O2 Flow Rate FiO2 10/18/24 18:50 98.3 66 17 156/81 (106) 95 98.3 10/18/24 18:39 Room Air* 0 21 Physical Exam General Appearance: Alert, Oriented X3, Cooperative, no distress, mildly anxious HEENT: Atraumatic, PERRLA, EOMI, Mucous membr. moist/pink Respiratory: Clear to auscultation, Normal air movement Cardiovascular: Regular rate, Normal S1, Normal S2, No murmurs Abdominal: Normal bowel sounds, Soft, No tenderness, No hepatospenomegaly Extremities: No clubbing, No cyanosis, No edema, Normal pulses, No tenderness/swelling Skin: No rashes, No breakdown, No significant lesion Neuro: Normal gait, Normal speech Psych/Mental Status: Mental status NL Labs/Diagnostic Data Labs Test 10/18/24 17:08 10/18/24 08:20 10/18/24 07:45 10/18/24 07:31 Range/Units POC Glucose 77 70-106 mg/dl Urine Color Light-yellow Yellow Urine Clarity Clear Clear Urine pH 5.5 5.0-9.0 Urine Specific [place] 1.014 1.001-1.035 Urine Protein Trace H Negative Urine Ketones Negative Negative Urine Blood Trace H Negative /uL Urine Nitrite Negative Negative Urine Bilirubin Negative Negative Urine Urobilinogen Normal Negative mg/dL Urine Leukocyte Esterase Negative Negative /uL Urine RBC None seen 0 - 4 /hpf Urine Microscopic WBC < 1 0-5 /HPF Urine Squamous Epithelial Cells Few <5 /hpf Urine Bacteria None seen None Seen /hpf Urine Glucose Normal Normal mg/dL White Blood Count 6.3 4.4-10.8 10^3/uL Red Blood Count 4.86 4.0-5.20 10^6/uL Hemoglobin 14.6 12.2-16.2 g/dL Hematocrit 43.1 36.0-46.0 % Mean Corpuscular Volume 88.7 80.0-100.0 fL Mean Corpuscular Hemoglobin 30.1 28.0-32.0 pg Mean Corpuscular Hemoglobin Concent 33.9 32.0-36.0 g/dL Red Cell Distribution Width 16.7 H 11.8-14.3 % Platelet Count 343 140-450 10^3/uL Mean Platelet Volume 7.4 6.9-10.8 fL Neutrophils (%) (Auto) 54.4 37.0-80.0 % Lymphocytes (%) (Auto) 35.5 10.0-50.0 % Monocytes (%) (Auto) 7.4 0.0-12.0 % Eosinophils (%) (Auto) 1.6 0.0-7.0 % Basophils (%) (Auto) 1.1 0.0-2.0 % Neutrophils # (Auto) 3.4 1.6-8.6 10 ^3/uL Lymphocytes # (Auto) 2.2 0.4-5.4 10 ^3/uL Monocytes # (Auto) 0.5 0-1.3 10 ^3/uL Eosinophils # (Auto) 0.1 0-0.8 10 ^3/uL Basophils # (Auto) 0.1 0-0.2 10 ^3/uL Nucleated Red Blood Cells 0.1 % Sodium Level 139 136-145 mmol/L Potassium Level 3.9 3.5-5.1 mmol/L Chloride Level 106 98-107 mmol/L Carbon Dioxide Level 22 20-31 mmol/L Anion Gap 11 5-15 Blood Urea Nitrogen 10 9-23 mg/dL Creatinine 1.14 H 0.550-1.02 mg/dL Glomerular Filtration Rate Calc 55 >90 mL/min BUN/Creatinine Ratio 8.8 L 10.0-20.0 Serum Glucose 127 H 74-106 mg/dL Calcium Level 10.3 8.7-10.4 mg/dL Total Bilirubin 1.0 0.2-1.0 mg/dL Aspartate Amino Transferase (AST) 49 H 13-40 U/L Alanine Aminotransferase (ALT) 45 H 7-40 U/L Alkaline Phosphatase 98 46-116 U/L Total Protein 8.1 5.7-8.2 g/dL Albumin 5.1 H 3.2-4.8 g/dL Stool Occult Blood Sample #3 Negative Negative ABD PELVIC CT SCAN IMPRESSION: 1. 2.2 cm mass in the upper pole of the left kidney. This is concerning for malignancy. 2. Right renal atrophy. 3. Colonic diverticulosis without diverticulitis. 4. Hiatal hernia. Problems(with codes): (1) Renal mass (2) Acute abdominal pain (3) Diverticulosis Plan/Recommendation Assessment and plan From a GI perspective the patient does not appear to have any evidence of GI bleeding at this time Her stool for occult blood was negative; hemoglobin is 14 She had a recent EGD and colonoscopy which did not show any malignancy Patient also has a known history of a renal mass that is being observed and has not apparently grown in size Awaiting urology consult I will recommend following up with GI Services as an outpatient for any further GI workup of management I will review her previous endoscopy and colonoscopy results Advance diet as tolerated, stool softeners, Monitor labs Plan discussed with: Patient CADY HILARIO MD Oct 18, 2024 20:39
[2024-10-18 21:00] VITALS: BP 160/64; PULSE 62; RESP 18; TEMP 97.3; O2SAT 94
[2024-10-18] MEDS: hydrOXYzine 25 MG TAB or CAP PO SCH (21:35)
[2024-10-18] MEDS: LOSARTAN POTASSIUM 50 MG TAB PO SCH (21:37)
[2024-10-18] MEDS: ATORVASTATIN 20 MG TAB PO SCH (21:37)
[2024-10-19 05:00] VITALS: BP 148/85; PULSE 99; RESP 19; TEMP 97.4; O2SAT 98
[2024-10-19 08:00] VITALS: PULSE 69; RESP 18; O2SAT 97
[2024-10-19 08:47] VITALS: BP 154/80; PULSE 63; RESP 18; TEMP 97.5; O2SAT 96
[2024-10-19 09:26] LABS: Basophils # (auto) 0.1 10 ^3/uL (0-0.2); Basophils % (auto) 1.3 % (0.0-2.0); Eosinophils # (auto) 0.1 10 ^3/uL (0-0.8); Eosinophils % (auto) 2.2 % (0.0-7.0); Hematocrit 38.5 % (36.0-46.0); Hemoglobin 12.8 g/dL (12.2-16.2); Lymphocytes # (auto) 1.9 10 ^3/uL (0.4-5.4); Lymphocytes % (auto) 39.1 % (10.0-50.0); Mean Corpuscular Hemoglobin 29.5 pg (28.0-32.0); Mean Corpuscular Hgb Conc. 33.2 g/dL (32.0-36.0); Mean Corpuscular Volume 88.8 fL (80.0-100.0); Monocytes # (auto) 0.4 10 ^3/uL (0-1.3); Monocytes % (auto) 7.2 % (0.0-12.0); Neutrophils # (auto) 2.4 10 ^3/uL (1.6-8.6); Neutrophils % (auto) 50.2 % (37.0-80.0); Nucleated Red Blood Cells % 0.2 %; Platelet Count (auto) 287 10^3/uL (140-450); Red Blood Cells 4.33 10^6/uL (4.0-5.20); Red Cell Distribution Width 16.3 % (11.8-14.3); White Blood Cell 4.9 10^3/uL (4.4-10.8)
[2024-10-19 09:43] LABS: Albumin 4.3 g/dL (3.2-4.8); Alkaline Phosphatase 80 U/L (46-116); Anion Gap 10 (5-15); BUN/Creatinine Ratio 8.6 (10.0-20.0); Calcium 9.7 mg/dL (8.7-10.4); Carbon Dioxide 21 mmol/L (20-31); Potassium 3.7 mmol/L (3.5-5.1); Sodium 140 mmol/L (136-145)
[2024-10-19 09:44] LABS: Total Protein 6.9 g/dL (5.7-8.2)
[2024-10-19 09:58] LABS: Alanine Aminotransferase 43 U/L (7-40); Aspartate Aminotransferase 43 U/L (13-40); Bilirubin, Total 1.2 mg/dL (0.2-1.0); Blood Urea Nitrogen 9 mg/dL (9-23); Chloride 109 mmol/L (98-107); Glucose 149 mg/dL (74-106)
[2024-10-19] MEDS: ALLOPURINOL 100 MG TAB PO SCH (10:00)
[2024-10-19] MEDS: METOPROLOL TARTRATE 25 MG TAB PO SCH (10:00)
[2024-10-19] MEDS: PANTOPRAZOLE 40 MG/10 ML VIAL INJ IV SCH (10:03)
--- NOTE | 2024-10-19 11:34 | DVHINCON2 ---
Date of service: Oct 19, 2024 Referring Physician Hospitalist Reason for Consultation renal mass History of Present Illness History Source: Patient Exam Limitations: No limitations HPI 59-year-old female with past medical history of diverticulitis presents in the ED with a chief complaint of abdominal pain. The patient reports abdominal pain on right lower quadrant associated with black tarry stools and bloating started last night. Denies fever, chills, nausea, vomiting, constipation, or diarrhea. Past medical history of hypertension, diabetes, anxiety, and gout. Pt sees Dr. Smith for renal mass. Had elected for surveillance, has MRI of the abdomen scheduled in April. Was last seen in office 10/15/24 Home Meds Active Scripts Metronidazole (Metronidazole) 500 Mg Tab, 500 MG PO TID for 7 Days, #21 TAB Prov:TITA GARCIA MD 09/04/24 Levofloxacin Hemihydrate (LEVAQUIN 500 MG) 500 Mg Tab, 500 MG PO DAILY for 7 Days, #7 TAB Prov:TITA GARCIA MD 09/04/24 Reported Medications Metronidazole (Metronidazole) 500 Mg Tab, 1 TAB PO TID for 10 Days, #30 09/03/24 Ciprofloxacin HCl (Ciprofloxacin Hydrochlori) 500 Mg Tab, 1 TAB PO BID for 10 Days, #20 09/03/24 Hydroxyzine Hcl (Hydroxyzine Hcl) 50 Mg Tab, 2 TAB PO BID for 20 Days, #80 09/03/24 Losartan Potassium (Losartan Potassium) 50 Mg Tab, 1 TAB PO BID for 30 Days, #60 09/03/24 Allopurinol (Allopurinol) 300 Mg Tab, 1 TAB PO DAILY 07/06/24 Pantoprazole Sodium Sesquihydr (Pantoprazole Sodium) 40 Mg Tab, 1 TAB PO QAM 07/06/24 Atorvastatin Calcium (ATORVASTATIN CALCIUM) 10 Mg Tab, 1 TAB PO DAILY for 30 Days, #30 07/06/24 Metoprolol Succinate (Metoprolol Succinate Er) 25 Mg Tab, 1 TAB PO DAILY 07/06/24 Metformin Hydrochloride (Metformin Hydrochloride) 500 Mg Tab, 1 TAB PO BID 07/06/24 Past Medical History Patient Family History: Cardiovascular disease G8 MOTHER G8 FATHER Diabetes mellitus G8 MOTHER Hypertension G8 MOTHER G8 FATHER Review of Systems Gastrointestinal: Abdominal Pain, Melena Genitourinary: Pain H&P Exam Vital Signs Vital Signs Date Time Temp Pulse Resp B/P (MAP) Pulse Ox O2 Delivery O2 Flow Rate FiO2 10/19/24 10:04 154/80 10/19/24 08:47 97.5 63 18 96 97.5 10/18/24 20:00 Room Air* 0 21 General Appeara: Well developed, Well nourished, Normal Appearance, Obese Neuro/Mental St: Alert, Oriented Appearance: Appropriate appearance, Appropriate insight Eye contact/ Speech: Cooperative, Good eye contact, Normal speech Coordination/Gait: Normal finger->nose, Normal gait, Negative Romberg's sign Skin Exam: Normal inspection, Normal color, Warm/dry Labs/Xrays Labs Test 10/19/24 08:57 10/19/24 06:32 10/18/24 08:20 10/18/24 07:31 Range/Units White Blood Count 4.9 4.4-10.8 10^3/uL Red Blood Count 4.33 4.0-5.20 10^6/uL Hemoglobin 12.8 12.2-16.2 g/dL Hematocrit 38.5 # 36.0-46.0 % Mean Corpuscular Volume 88.8 80.0-100.0 fL Mean Corpuscular Hemoglobin 29.5 28.0-32.0 pg Mean Corpuscular Hemoglobin Concent 33.2 32.0-36.0 g/dL Red Cell Distribution Width 16.3 H 11.8-14.3 % Platelet Count 287 140-450 10^3/uL Mean Platelet Volume 7.7 6.9-10.8 fL Neutrophils (%) (Auto) 50.2 37.0-80.0 % Lymphocytes (%) (Auto) 39.1 10.0-50.0 % Monocytes (%) (Auto) 7.2 0.0-12.0 % Eosinophils (%) (Auto) 2.2 0.0-7.0 % Basophils (%) (Auto) 1.3 0.0-2.0 % Neutrophils # (Auto) 2.4 1.6-8.6 10 ^3/uL Lymphocytes # (Auto) 1.9 0.4-5.4 10 ^3/uL Monocytes # (Auto) 0.4 0-1.3 10 ^3/uL Eosinophils # (Auto) 0.1 0-0.8 10 ^3/uL Basophils # (Auto) 0.1 0-0.2 10 ^3/uL Nucleated Red Blood Cells 0.2 % Sodium Level 140 136-145 mmol/L Potassium Level 3.7 3.5-5.1 mmol/L Chloride Level 109 H 98-107 mmol/L Carbon Dioxide Level 21 20-31 mmol/L Anion Gap 10 5-15 Blood Urea Nitrogen 9 9-23 mg/dL Creatinine 1.05 H 0.550-1.02 mg/dL Glomerular Filtration Rate Calc 61 >90 mL/min BUN/Creatinine Ratio 8.6 L 10.0-20.0 Serum Glucose 149 H 74-106 mg/dL Calcium Level 9.7 8.7-10.4 mg/dL Total Bilirubin 1.2 H 0.2-1.0 mg/dL Aspartate Amino Transferase (AST) 43 H 13-40 U/L Alanine Aminotransferase (ALT) 43 H 7-40 U/L Alkaline Phosphatase 80 46-116 U/L Total Protein 6.9 5.7-8.2 g/dL Albumin 4.3 3.2-4.8 g/dL POC Glucose 101 70-106 mg/dl Urine Color Light-yellow Yellow Urine Clarity Clear Clear Urine pH 5.5 5.0-9.0 Urine Specific [place] 1.014 1.001-1.035 Urine Protein Trace H Negative Urine Ketones Negative Negative Urine Blood Trace H Negative /uL Urine Nitrite Negative Negative Urine Bilirubin Negative Negative Urine Urobilinogen Normal Negative mg/dL Urine Leukocyte Esterase Negative Negative /uL Urine RBC None seen 0 - 4 /hpf Urine Microscopic WBC < 1 0-5 /HPF Urine Squamous Epithelial Cells Few <5 /hpf Urine Bacteria None seen None Seen /hpf Urine Glucose Normal Normal mg/dL Stool Occult Blood Sample #3 Negative Negative Assessment/Plan Problem List: (1) Diverticulitis of intestine (2) Acute diverticulitis (3) Melena (4) Renal mass (5) Acute abdominal pain (6) Diverticulosis Plan patient can proceed with cryoablation of renal mass via IR service as outpt f/u with urology as scheduled Plan discussed with: Patient, Other BRANDON JENNINGS NP Oct 19, 2024 11:34
--- NOTE | 2024-10-19 12:01 | DVHDS2 ---
Discharge Summary Date of Admission Oct 18, 2024 at 12:23 Date of Discharge: Oct 19, 2024 Labs/Diagnostic Data: Laboratory Results Test 10/19/24 08:57 10/19/24 06:32 10/18/24 08:20 10/18/24 07:31 White Blood Count 4.9 10^3/uL (4.4-10.8) Red Blood Count 4.33 10^6/uL (4.0-5.20) Hemoglobin 12.8 g/dL (12.2-16.2) Hematocrit 38.5 % (36.0-46.0) Mean Corpuscular Volume 88.8 fL (80.0-100.0) Mean Corpuscular Hemoglobin 29.5 pg (28.0-32.0) Mean Corpuscular Hemoglobin Concent 33.2 g/dL (32.0-36.0) Red Cell Distribution Width 16.3 % (11.8-14.3) Platelet Count 287 10^3/uL (140-450) Mean Platelet Volume 7.7 fL (6.9-10.8) Neutrophils (%) (Auto) 50.2 % (37.0-80.0) Lymphocytes (%) (Auto) 39.1 % (10.0-50.0) Monocytes (%) (Auto) 7.2 % (0.0-12.0) Eosinophils (%) (Auto) 2.2 % (0.0-7.0) Basophils (%) (Auto) 1.3 % (0.0-2.0) Neutrophils # (Auto) 2.4 10 ^3/uL (1.6-8.6) Lymphocytes # (Auto) 1.9 10 ^3/uL (0.4-5.4) Monocytes # (Auto) 0.4 10 ^3/uL (0-1.3) Eosinophils # (Auto) 0.1 10 ^3/uL (0-0.8) Basophils # (Auto) 0.1 10 ^3/uL (0-0.2) Nucleated Red Blood Cells 0.2 % Sodium Level 140 mmol/L (136-145) Potassium Level 3.7 mmol/L (3.5-5.1) Chloride Level 109 mmol/L (98-107) Carbon Dioxide Level 21 mmol/L (20-31) Anion Gap 10 (5-15) Blood Urea Nitrogen 9 mg/dL (9-23) Creatinine 1.05 mg/dL (0.550-1.02) Glomerular Filtration Rate Calc 61 mL/min (>90) BUN/Creatinine Ratio 8.6 (10.0-20.0) Serum Glucose 149 mg/dL (74-106) Calcium Level 9.7 mg/dL (8.7-10.4) Total Bilirubin 1.2 mg/dL (0.2-1.0) Aspartate Amino Transferase (AST) 43 U/L (13-40) Alanine Aminotransferase (ALT) 43 U/L (7-40) Alkaline Phosphatase 80 U/L (46-116) Total Protein 6.9 g/dL (5.7-8.2) Albumin 4.3 g/dL (3.2-4.8) POC Glucose 101 mg/dl (70-106) Urine Color Light-yellow (Yellow) Urine Clarity Clear (Clear) Urine pH 5.5 (5.0-9.0) Urine Specific [place] 1.014 (1.001-1.035) Urine Protein Trace (Negative) Urine Ketones Negative (Negative) Urine Blood Trace /uL (Negative) Urine Nitrite Negative (Negative) Urine Bilirubin Negative (Negative) Urine Urobilinogen Normal mg/dL (Negative) Urine Leukocyte Esterase Negative /uL (Negative) Urine RBC None seen /hpf (0 - 4) Urine Microscopic WBC < 1 /HPF (0-5) Urine Squamous Epithelial Cells Few /hpf (<5) Urine Bacteria None seen /hpf (None Seen) Urine Glucose Normal mg/dL (Normal) Stool Occult Blood Sample #3 Negative (Negative) Other Laboratory Tests 10/19/24 08:57 Brief Hx & Hospital Course: Final diagnoses: Abdominal pain Diverticulosis Left kidney mass Type 2 diabetes Hypertension Hiatal hernia GERD Obesity Anxiety Gout No GI bleed 59-year-old female who was admitted for abdominal pain. CT scan of the abdomen was negative except for a 2.2 cm mass in the left kidney which is known to the patient and she has follow up as an outpatient GI recommended no further interventions here Stool was negative for blood, hemoglobin remained stable Her abdominal pain is very mild in the left lower quadrant No nausea no vomiting Overall the patient is stable and she can be discharged home to resume the same home medications and follow up as an outpatient Condition at Discharge: Stable Final Diagnosis/Problems List Abdominal pain Diverticulosis Left kidney mass Type 2 diabetes Hypertension Hiatal hernia GERD Obesity Anxiety Gout No GI bleed Discharge Disposition: Home SNF Discharge Will this Physician continue t: No Discharge Instruct/Medications Diet: Consistent carbohydrate, Cardiac 2g Na,low cholest Activity: No Restrictions, As Tolerated Follow Up/Referral: PCP as soon as possible Medications: Same home medications Discharge Statement: "Patient was advised to return to the ER or call 911 if any headaches, dizziness, shortness of breath, chest pain, abdominal pain, bleeding, fevers, or worsening of medical condition. Patient was counseled about treatment plan, medications, possible side effects, patientverbalized understanding. All questions were answered to the best of my ability. This discharge took greater then 30 minutes in planning, reviewing documentation, counseling the patient, and discussing with other team members." ASSESSMENT ASSESSMENT Assessment Abdominal pain Diverticulosis Left kidney mass Type 2 diabetes Hypertension Hiatal hernia GERD Obesity Anxiety Gout No GI bleed Date of Service: Oct 19, 2024 Billing Provider: FAWAD GALINDO MD Common Visit Codes: 24356-ADM/OBS DISCH DAY >30min FAWAD GALINDO MD Oct 19, 2024 12:01
[2024-10-19 13:00] VITALS: BP 108/58; PULSE 70; RESP 20; TEMP 98; O2SAT 95
[2024-10-19 14:38] VITALS: BP 134/72; PULSE 88; RESP 18; TEMP 97.8; O2SAT 97
--- NOTE | 2024-10-19 17:29 | DVHPNRES ---
Progress Note Date Seen: Oct 19, 2024 Resident Creating Document: JUAN ANTONIO ANGELES RESIDENT Medical Necessity Reason Pt with a Central, PICC or Fol: No Subjective Review of Systems Patient seen and examined at bedside. No new complaints. Stool occult has been negative. CT scan of the abdominal pelvis showed 2 cm of mass in left kidney, and diverticulosis without diverticulitis and hiatal hernia. Patient is asymptomatic, denying any other complaints at this point. Objective vital signs Vital Sign Date Time Temp Pulse Resp B/P (MAP) Pulse Ox O2 Delivery O2 Flow Rate FiO2 10/19/24 14:38 97.8 88 18 97 10/19/24 13:00 108/58 (75) 10/19/24 08:00 Room Air* 0 21 Total Intake and Output 10/18/24 10/18/24 10/19/24 14:59 22:59 06:59 Intake Total 320 ml 400 ml Balance 320 ml 400 ml Examination General Appearance: Cooperative. Well developed. Well nourished. NAD Head Exam: Normal inspection Neck Exam: Normal inspection. Non-tender. Normal alignment Pulmonary/Respiratory: Chest non-tender. Clear bilateral breath sounds Cardiovascular/Chest: Regular rate and rhythm. No murmurs. No JVD. Peripheral Pulses: 2+ Radial (R). 2+ Radial (L). 2+ Pedal (R). 2+ Pedal (L) Abdominal Exam: Normal bowel sounds. Soft. Nontender. No hepatospenomegaly. No masses Ankle Exam: Negative ankle edema Lower extremities: Negative lower extremity edema Neuro/Mental Status: A&O x4. Coherent Thoughts/Psych: Normal thought pattern. Appropriate mood and affect. Good judgement and insight Appearance: In no acute distress Skin Exam: Normal inspection. Normal color. Warm. Dry laboratory and microbiology Laboratory Tests 10/19/24 08:57 Test 10/19/24 08:57 Range/Units Serum Glucose 149 H 74-106 mg/dL Problem List/Assessment/Plan Problem List/Assessment/Plan GERD Ruled out GI bleed Acute gastritis. Hiatal hernia Kidney mass rule out malignancy Abdominal pain likely due to kidney mass History of hypertension and diabetes mellitus Morbid obesity BMI 36.3 kg/m2 Plan/recommendation Continue Protonix 40 mg p.o. daily for trial, follow with GI clinic in outpatient setting for follow-up. -no need for any acute intervention at this point. -stool occult has been negative, stable hemoglobin, as per patient she underwent recent EGD and colonoscopy which was negative. -CT scan of abdomen and pelvis which showed renal mass, recommendation per hospitalist and urology. -patient advised to follow with GI service in outpatient setting for further GI workup. -patient has been discharged. Patient counseled on weight loss, avoiding fatty and fried food, elevation of head while sleeping, waiting of beverages, awaiting of excessive coffee/chocolates for GERD/gastritis symptoms. Plan discussed with: Patient, Other (RN) JUAN ANTONIO ANGELES RESIDENT Oct 19, 2024 17:29
== END 2024-10-19 15:30 | disposition home or self-care (01) | DRG 392 ==
LOC: ER 06:56 → OVERFLOW 12:23 → ER 12:27 → WEST WING 18:20
PROVIDERS: ADMIT Registered Nurse; ATTEND Internal Medicine Geriatric Medicine
DX: K21.9 Gastro-esophageal reflux disease without esophagitis (principal); K29.00 Acute gastritis without bleeding; K57.30 Diverticulosis of large intestine without perforation or abscess without bleeding; K44.9 Diaphragmatic hernia without obstruction or gangrene; N28.89 Other specified disorders of kidney and ureter; M10.9 Gout, unspecified; I10 Essential (primary) hypertension; E11.9 Type 2 diabetes mellitus without complications; F41.1 Generalized anxiety disorder; E66.01 Morbid (severe) obesity due to excess calories; Z82.49 Family history of ischemic heart disease and other diseases of the circulatory system; Z83.3 Family history of diabetes mellitus; Z68.36 Body mass index [BMI] 36.0-36.9, adult; Z79.899 Other long term (current) drug therapy; Z88.5 Allergy status to narcotic agent; Z88.0 Allergy status to penicillin; Z90.710 Acquired absence of both cervix and uterus
CPT/HCPCS: 36415; 73630; 74177; 80053; 81001; 82270; 82962; 85025; 99291; G0378; J1885; J2405; J2470

== ENCOUNTER 2025-02-08 09:50 | Emergency (ER) | payer SELFPAY ==
[~2025-02-08] VITALS: Ht 149.9 cm; Wt 78.3 kg
[~2025-02-08 09:50] MED LIST changes: -CIPR-214 PO; -LEVO500T91 PO; -MET500T PO
[2025-02-08 10:27] VITALS: BP 158/82; PULSE 103; RESP 18; TEMP 99.8; O2SAT 96
--- NOTE | 2025-02-08 11:11 | ED.PDOC ---
SOB-HPI HPI Comments Portions of this chart may have been created with an modal fluency direct voice recognition software. Occasional wrong-word or "sound-alike" substitutions may have occurred due to the inherent limitations of voice recognition software. Please read the chart carefully and recognize, using context, where these substitutions have occurred. A 59 year old female with a past medical history of hypertension, hyperlipidemia, CKD, migraine, diabetes presents to the emergency department with a chief complaint of cough onset 1 day. For the past day, patient has been experiencing dry cough as well as sore throat, fatigue, headache, lightheadedness, fever, congestion, chills, body ache. Patient took DayQuil, NyQuil and Tylenol for symptoms with no improvement. Last dose of Tylenol was last night. No other symptoms or modifying factors present at this time. Denies unintentional weight loss Denies persistent chest pain, shortness of breath, leg swelling Denies history of asthma nor any breathing conditions Denies history of pneumonia Denies recent international travel Denies nausea vomiting diarrhea Chief Complaint: Flu like Time Seen by MD: 10:40 Primary Care Provider: UNKNOWN Reviewed notes: Medications, Allergies Information Source: Patient Mode of Arrival: Ambulatory Severity: Moderate Timing: Days Duration: Since onset Context: At Rest PE Risk Factors: None History of: None Prehospital treatment: Pain Meds (Tylenol), Other (DayQuil, NyQuil) Modifying Factors: Nothing Associated Signs and Symptoms: Cough, Nasal Congestion, Sore Throat If cough with SOB: Non-Productive Past Medical History PAST MEDICAL HISTORY: CKF, DM, High Lipids, HTN Past Medical History (Other): migraine Surgical History: Appendectomy, 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 Family History Family History: Unknown Social History Smoker: Non-Smoker Alcohol: Denies ETOH Use Drugs: Denies Drug Use Lives In: Home All Other Systems: Reviewed and Negative (as per HPI) Physical Exam General Appearance: No Apparent Distress, Normal HEENT: Normal ENT Inspection, Pharynx Normal, TMs Normal Neck: Full Range of Motion, Non-Tender, Normal, Normal Inspection Respiratory: Chest Non-Tender, Lungs Clear, No Accessory Muscle Use, No Respiratory Distress, Normal Breath Sounds Cardiovascular: No Edema, No JVD, No Murmur, No Gallop, Normal Peripheral Pulses, Regular Rate/Rhythm Breast Exam: Deferred Gastrointestinal: No Organomegaly, Non Tender, No Pulsatile Mass, Normal Bowel Sounds, Soft Genitalia: Deferred Pelvic: Deferred Rectal: Deferred Extremities: No calf tenderness, Normal capillary refill, Normal inspection, Normal range of motion, Non-tender, No pedal edema Musculoskeletal : Apperance: Normal Neurologic: Alert, licensed clinical social worker II-XII nml as Tested, No Motor Deficits, Normal Affect, Normal Mood, No Sensory Deficits Cerebellar Function: Normal Reflexes: Normal Skin: Dry, Normal Color, Warm Lymphatic: No Adenopathy Was a procedure done? Was a procedure done?: No Differential Dx Differential Diagnosis: Bronchitis, Sinusitis, Otitis Media, URI X-Ray, Labs, Meds, VS Vital Signs Date Time Temp Pulse Resp B/P (MAP) Pulse Ox O2 Delivery O2 Flow Rate FiO2 02/08/25 10:27 99.8 103 18 158/82 (107) 96 99.8 02/08/25 10:27 103 18 96 Room Air 02/08/25 10:07 99.8 103 18 158/82 (107) 96 99.8 Lab Test 02/08/25 12:20 02/08/25 12:19 02/08/25 11:05 Range/Units SARS-CoV-2 Antigen (Rapid) Positive NEGATIVE Urine Color Light-yellow Yellow Urine Clarity Clear Clear Urine pH 5.5 5.0-9.0 Urine Specific [place] 1.016 1.001-1.035 Urine Protein Trace H Negative Urine Ketones Negative Negative Urine Blood 1+ H Negative /uL Urine Nitrite Negative Negative Urine Bilirubin Negative Negative Urine Urobilinogen Normal Negative mg/dL Urine Leukocyte Esterase Negative Negative /uL Urine RBC 5 0 - 4 /hpf Urine Microscopic WBC 1 0-5 /HPF Urine Squamous Epithelial Cells Few <5 /hpf Urine Bacteria Few H None Seen /hpf Urine Mucus Few None Seen Urine Glucose Normal Normal mg/dL White Blood Count 6.9 4.4-10.8 10^3/uL Red Blood Count 4.86 4.0-5.20 10^6/uL Hemoglobin 14.2 12.2-16.2 g/dL Hematocrit 41.9 36.0-46.0 % Mean Corpuscular Volume 86.1 80.0-100.0 fL Mean Corpuscular Hemoglobin 29.2 28.0-32.0 pg Mean Corpuscular Hemoglobin Concent 33.9 32.0-36.0 g/dL Red Cell Distribution Width 14.2 11.8-14.3 % Platelet Count 251 140-450 10^3/uL Mean Platelet Volume 7.6 6.9-10.8 fL Neutrophils (%) (Auto) 69.5 37.0-80.0 % Lymphocytes (%) (Auto) 18.9 10.0-50.0 % Monocytes (%) (Auto) 11.3 0.0-12.0 % Eosinophils (%) (Auto) 0.1 0.0-7.0 % Basophils (%) (Auto) 0.2 0.0-2.0 % Neutrophils # (Auto) 4.8 1.6-8.6 10 ^3/uL Lymphocytes # (Auto) 1.3 0.4-5.4 10 ^3/uL Monocytes # (Auto) 0.8 0-1.3 10 ^3/uL Eosinophils # (Auto) 0 0-0.8 10 ^3/uL Basophils # (Auto) 0 0-0.2 10 ^3/uL Nucleated Red Blood Cells 0.1 % Sodium Level 138 136-145 mmol/L Potassium Level 3.8 3.5-5.1 mmol/L Chloride Level 105 98-107 mmol/L Carbon Dioxide Level 24 20-31 mmol/L Anion Gap 9 5-15 Blood Urea Nitrogen 8 L 9-23 mg/dL Creatinine 1.16 H 0.550-1.02 mg/dL Glomerular Filtration Rate Calc 54 >90 mL/min BUN/Creatinine Ratio 6.9 L 10.0-20.0 Serum Glucose 106 74-106 mg/dL Calcium Level 10.0 8.7-10.4 mg/dL X-Ray, Labs, Meds, VS Comment A 59 year old female with a past medical history of hypertension, hyperlipidemia, CKF, migraine, diabetes presents to the emergency department with a chief complaint of cough onset 1 day. Patient arrives alert and oriented, ABC's intact, afebrile, vital signs stable, saturating well in room air CBC was ordered to exclude anemia, blood loss, or infection. BMP was ordered to exclude electrolyte abnormalities, renal failure, dehydration, hyperglycemia Urinalysis was ordered to rule out UTI or hematuria. Presentation most consistent with Covid 19 infection. Patient advised to take OTC Tylenol/Motrin as needed for fever, pain, body aches. Given hydration and self care instructions. Based on vitals and exam they are nontoxic and stable for discharge. Patient is asymptomatic without confusion, chest pain, hematuria, or SOB or hypoxia. Discharge with strict return precautions. Follow up with PCP within 1-2 days. Counseled about self-isolation and self quarantine for 5 days Recommended patient to refer to [facility] webpage for up-to-date information regarding COVID-19 and current social distancing, treating and screening guideli romaine as these are constantly updating Stressed importance of hand Additional MDM Review of External, Non-ED records: External records reviewed. Discussion with independent historian (EMS, family) history obtained from the patient/parents (if applicable) at bedside Chronic conditions affecting care: DM, HTN, HLD, migraine, CKF Social determinants of health affecting care: None Consideration of admission (observation or admission): I considered escalation of care to admission for this patient, however given the reassuring workup, the patient is safe for outpatient management. Time of 1ST Reevaluation: 11:10 Reevaluation 1ST: Improved Patient Education/Counseling: Diagnosis, Treatment, Need For Follow Up Family Education/Counseling: No Family Present Departure 1 Departure Time of Disposition: 13:20 Impression: Primary Impression: COVID Disposition: 01 HOME / SELF CARE / HOMELESS Condition: Stable e-Prescriptions Ibuprofen Micronized (Ibuprofen) 600 Mg Tab 600 MG PO Q8HP PRN for 10 Days, #30 TAB 0 Refills Prov: BRADEN SERVIN [employer] 02/08/25 Guaifenesin (Guaifenesin) 100 Mg/5 Ml [place] 10 ML PO Q6HP PRN for 5 Days, #200 ML 0 Refills Prov: BRADEN SERVIN [employer] 02/08/25 Benzonatate (Benzonatate) 100 Mg Cap 1 CAP PO TID for 10 Days, #30 CAP 0 Refills Prov: BRADEN SERVIN [employer] 02/08/25 Critical Care Note Critical Care Time?: No Stability Stability form required: No Heart Score Heart Score: Heart Score Response (Comments) Value History N/A 0 EKG N/A 0 Age N/A 0 Risk Factors N/A 0 Troponin N/A 0 Total 0 I personally scribed for BRADEN SERVIN NP ([email or web address]) on 02/08/25 at 11:11. Electronically submitted by Alejandrina Mendoza ([email or web address]). I personally scribed for BRADEN SERVIN NP ([email or web address]) on 02/08/25 at 11:38. Electronically submitted by Alejandrina Mendoza ([email or web address]). BRADEN SERVIN NP Feb 08, 2025 11:11
[2025-02-08 11:35] LABS: Basophils # (auto) 0 10 ^3/uL (0-0.2); Basophils % (auto) 0.2 % (0.0-2.0); Eosinophils # (auto) 0 10 ^3/uL (0-0.8); Eosinophils % (auto) 0.1 % (0.0-7.0); Hematocrit 41.9 % (36.0-46.0); Hemoglobin 14.2 g/dL (12.2-16.2); Lymphocytes # (auto) 1.3 10 ^3/uL (0.4-5.4); Lymphocytes % (auto) 18.9 % (10.0-50.0); Mean Corpuscular Hemoglobin 29.2 pg (28.0-32.0); Mean Corpuscular Hgb Conc. 33.9 g/dL (32.0-36.0); Mean Corpuscular Volume 86.1 fL (80.0-100.0); Monocytes # (auto) 0.8 10 ^3/uL (0-1.3); Monocytes % (auto) 11.3 % (0.0-12.0); Neutrophils # (auto) 4.8 10 ^3/uL (1.6-8.6); Neutrophils % (auto) 69.5 % (37.0-80.0); Nucleated Red Blood Cells % 0.1 %; Platelet Count (auto) 251 10^3/uL (140-450); Red Blood Cells 4.86 10^6/uL (4.0-5.20); Red Cell Distribution Width 14.2 % (11.8-14.3); White Blood Cell 6.9 10^3/uL (4.4-10.8)
[2025-02-08 11:39] LABS: Chloride 105 mmol/L (98-107); Potassium 3.8 mmol/L (3.5-5.1); Sodium 138 mmol/L (136-145)
[2025-02-08 11:40] LABS: Anion Gap 9 (5-15); Carbon Dioxide 24 mmol/L (20-31)
[2025-02-08 11:45] LABS: BUN/Creatinine Ratio 6.9 (10.0-20.0); Blood Urea Nitrogen 8 mg/dL (9-23); Glucose 106 mg/dL (74-106)
[2025-02-08 12:44] LABS: Urine Bacteria FEW /hpf (None Seen); Urine Blood 1+ /uL (Negative); Urine Clarity Clear (Clear); Urine Color Light-Yellow (Yellow); Urine Mucus FEW (None Seen); Urine Protein, UAD TRACE (Negative); Urine Specific Gravity 1.016 (1.001-1.035); Urine Squamous Epithelial Cell FEW /hpf (<5); Urine Urobilinogen Normal (Negative); Urine WBC 1 /HPF (0-5); Urine pH 5.5 (5.0-9.0)
[2025-02-08 13:21] LABS: COVID19 ANTIGEN SOFIA FIA POSITIVE (NEGATIVE)
[2025-02-08] MEDS ORDERED: IBUP1TAB5 PO (13:22)
[2025-02-08] MEDS ORDERED: BENZ100C97 PO (13:22)
[2025-02-08] MEDS ORDERED: GUAI-41 PO (13:22)
== END 2025-02-08 13:34 | disposition home or self-care (01) ==
LOC: ER 09:50
DX: U07.1 COVID-19 (principal); I12.9 Hypertensive chronic kidney disease with stage 1 through stage 4 chronic kidney disease, or unspecified chronic kidney disease; E11.22 Type 2 diabetes mellitus with diabetic chronic kidney disease; N18.9 Chronic kidney disease, unspecified; E78.5 Hyperlipidemia, unspecified; Z90.710 Acquired absence of both cervix and uterus; Z90.49 Acquired absence of other specified parts of digestive tract
CPT/HCPCS: 36415; 80048; 81001; 85025; 87426